=== PATIENT | male | born 1935 | race Caucasian/White ===

== ENCOUNTER 2022-02-15 20:30 | Inpatient (IN) | payer MEDICARE, OTHER, SELFPAY ==
[2022-02-15] VITALS (8 sets, daily range): BP systolic 109–172; BP diastolic 58–88; PULSE 38–59; RESP 14–18; TEMP 36.7–36.8; O2SAT 98–100; BMI 24.6
--- NOTE | 2022-02-15 20:38 | XRR_ITS ---
PROCEDURE INFORMATION: Exam: XR Chest Exam date and time: 02/15/2022 8:44 PM Age: 86 years old Clinical indication: Other: Syncopal episode; Prior surgery; Surgery date: 6+ months; Surgery type: Openheart; Additional info: Syncope TECHNIQUE: Imaging protocol: Radiologic exam of the chest. Views: 1 view. COMPARISON: No relevant prior studies available. FINDINGS: Lungs: There is a left suprahilar/paratracheal density, measuring about 9.2 x 5.3 cm, with probable calcifications. Considerations include mediastinal hilar mass versus vascular mass/aneurysm. Comparison prior study should be obtained if possible. Otherwise follow-up contrast-enhanced chest CT should be obtained. The lung bases are suboptimally assessed due to technique however the upper lungs are clear of focal consolidation. Pleural spaces: Unremarkable. No pleural effusion. No pneumothorax. Heart/Mediastinum: Cardiac silhouette appears somewhat magnified by technique but is probably normal in size. No obvious vascular congestion. Bones/joints: No acute osseous findings. Sternotomy wire Other findings: Single view was submitted. XR/XR chest 1V portable [id number] IMPRESSION: 1. Left hilar/mediastinal density/mass. See discussion above. 2. No obvious acute consolidation. Suboptimal lung base assessment. Followup including lateral view may be obtained if clinically indicated.
--- NOTE | 2022-02-15 20:38 | ECG_ITS ---
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 Measurements Intervals [place] Rate: 53 P: MD: QRS: 55 QRSD: 109 T: 34 QT: 444 QTc: 419 Interpretive Statements SINUS BRADYCARDIA WITH 2ND DEGREE AV BLOCK, 2:1 OR MOBITZ TYPE II WITH OCCASIONAL VENTRICULAR PREMATURE COMPLEXES CRITICAL TEST RESULT INTERPRETATION BASED ON A DEFAULT AGE OF 40 YEARS No previous ECG available for comparison Electronically Signed On 02-17-2022 5:42:12 CDT by Mila Arce M.D. [id number]
--- NOTE | 2022-02-15 20:39 | ED_ITS ---
HPI - Syncope General: Chief Complaint: Syncope Stated Complaint: syncopal episode Time Seen by Provider: 02/15/22 20:38 History of Present Illness: Mr. Owens is an 86-year-old gentleman with remote past medical history of aortic aneurysm and a valve replacement currently on warfarin who presents to the emergency department due to syncope bradycardia. 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 EMS found the patient hypotensive with blood pressures in the 60s and bradycardic with heart rates in the 20s. Initially patient declined transcutaneous pacing and after fluid bolus the patient had improvement in blood pressure and heart rate. He denies similar episodes in the past. He is not on beta-blockade. Intensity of lightheadedness was severe, course has improved. No other specific changes in health, exacerbating, or alleviating factors identified. Onset (ago): minute(s) Prodromal symptoms: lightheaded Witnessed: Yes - by Bystander Review of Systems General: Reports: 10 or more systems reviewed and unremarkable except in HPI and below PFSH ED PFSH: Medical History Abnormal CXR Abnormal chest x-ray dating back to the time he was in the [place]. Has had regular imaging studies in [place] previously with no change documented. Chronic anticoagulation coumadin, for aortic valve replacement, goal INR 2.5-3.5 History of rib fracture Prior event event with seven rib fractures, related to injury from a cow Osteoarthritis Prostatic hypertrophy Surgical History History of aortic aneurysm repair (1987) History of heart valve replacement (1987) aortic Family History Denies family history of CAD (coronary artery disease) Social History Smoking and tobacco status: former smoker Lives independently: Yes Household members: spouse service: Yes branch: [employer] 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 Reads lips to supplement hearing loss Physical Exam Const: COMMON NORMALS: alert GENERAL APPEARANCE: cooperative and well developed HENMT: COMMON NORMALS: normocephalic and atraumatic HEAD & SCALP: normocephalic and atraumatic THROAT: posterior oropharynx normal Eye: COMMON NORMALS: conjunctivae normal CONJUNCTIVA: Yes conjunctivae normal SCLERA: sclerae normal Neck/C-Spine: COMMON NORMALS: supple GENERAL: Yes trachea midline Resp: COMMON NORMALS: normal respiratory effort EFFORT & INSPECTION: Yes able to speak in complete sentences Cardio: RATE: bradycardic RHYTHM: abnormal rhythm irregularly irregular and with ectopic beats GI: COMMON NORMALS: Soft to palpation PALPATION: Yes Soft to palpation and No Tenderness to palpation present (GI) PERCUSSION: normal to percussion Extremity: GENERAL: Yes normal exam except as noted and No edema Neuro: COMMON NORMALS: moves all extremities SENSORIUM/ORIENTATION: Yes alert and No Orientation impaired Psych: COMMON NORMALS: mental status grossly normal and Normal thought process present THOUGHT PROCESS: Normal thought process present Course ED course: - Patient was seen and evaluated by me at bedside - Patient placed on cardiac monitors, IV access obtained - Initial evaluation notable for exam as above - Labs and xrays personally interpreted by me. EKG notable for a somewhat unclear regarding rhythm, possibly variable second-degree block versus slow A. fib. Blood pressure remains adequate and patient asymptomatic resting on cot. - Labs notable for no leukocytosis, normal hemoglobin. INR 3.39. Metabolic panel with mildly elevated creatinine. Delta troponin pending. - Imaging notable for abnormal. Chest x-ray though given patient's reported history of thoracic aortic repair likely normal. CT head and neck negative for acute traumatic injury. - Upon serial reexamination after treatment the patient was similar. Patient assessed with cardiology was consulted. - Based on patient history, evaluation, and testing as interpreted the most likely cause of the patient's condition is symptomatic bradycardia with new onset electrical conduction abnormality. - The results of ED evaluation were discussed with the patient including plan for admission due to requirement for level of care not available if discharged to prevent significant worsening/deterioration. - Admitting service was contacted and Dr Uribe with the hospitalist serviceagreed to admit the patient - Patient was admitted without further deterioration or significant events. Note: Click bubbles or prepopulated solis in note writing are used for assistance with data collection and billing and are inherently more limited than narrative and other text portions of this note. Please use narrative for additional clinical history and defer to narrative/free test for any case of contradictory information. If information appears in only free text or click bubble it should be considered present or absent as reported. Please contact note copywriter for clarifications of clinical information or contradictory information. MDM is a brief summary, contradictory or erroneous seeming information should be clarified and full note should be reviewed. Vital Signs: Vital signs: Vital Signs Temperature 98.8 F 02/22/22 13:30 Pulse Rate 60 02/22/22 13:30 Respiratory Rate 14 02/22/22 13:30 Blood Pressure 108/65 02/22/22 13:30 Pulse Oximetry 95 02/22/22 13:30 MDM - Syncope Medical Decision Making 86-year-old gentleman presenting due to syncope with initial bradycardia and hypotension though improved after fluids given by EMS. Most likely cause is new onset heart block versus slow A. fib. Admitted for further management with cardiology consult. Medical Records I reviewed the patient's medical records. Lab Data I reviewed the patient's lab results. : 02/22/22 03:27 02/20/22 04:52 Radiology Impressions Cervical Spine CT 02/15/22 21:00 IMPRESSION: No acute spine fracture-subluxation. 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 No significant central canal stenosis related to osseous elements. Head CT 02/15/22 21:00 IMPRESSION: No acute intracranial findings. Chest X-Ray 02/21/22 08:02 IMPRESSION: 1. Development of mild interstitial infiltrates in the central and lower right lung since prior study. Developing pneumonia is not excluded. Laboratory Results WBC 8.6 10^3/uL (4.0-10.0) 02/15/22 21:40 RBC 4.64 10^6/uL (4.1-5.3) 02/15/22 21:40 Hgb 13.6 g/dL (11.7-16.6) 02/15/22 21:40 Hct 41.6 % (42.0-52.0) L 02/15/22 21:40 MCV 89.7 fl (80-94) 02/15/22 21:40 MCH 29.3 pg (28.0-34.0) 02/15/22 21:40 MCHC 32.7 g/dL (30.0-36.0) 02/15/22 21:40 RDW 14.6 % (12.1-15.1) 02/15/22 21:40 Plt Count 128 10^3/cmm (130-400) L 02/15/22 21:40 MPV 11.0 fL (7.4-10.4) H 02/15/22 21:40 Neut % (Auto) 82.5 % 02/15/22 21:40 Lymph % (Auto) 11.2 % 02/15/22 21:40 [place] % (Auto) 4.1 % 02/15/22 21:40 Eos % (Auto) 1.6 % 02/15/22 21:40 Baso % (Auto) 0.1 % 02/15/22:40 Neut # (Auto) 7.13 10^3/uL (1.8-7.7) 02/15/22 21:40 Lymph # (Auto) 1.0 10^3/uL (0.8-4.8) 02/15/22 21:40 [place] # (Auto) 0.4 10^3/uL (0.2-0.9) 02/15/22 21:40 Eos # (Auto) 0.1 10^3/uL (0.0-0.8) 02/15/22 21:40 Baso # (Auto) 0.0 10^3/uL (0.0-0.1) 02/15/22 21:40 Nucleated RBC % (auto) 0 % 02/15/22 21:40 Nucleated RBCs # 0.0 /100WBC 02/15/22 21:40 PT 34.50 SECONDS (12.1-14.9) H 02/15/22 21:40 INR 3.39 (0.8-1.2) H 02/15/22 21:40 APTT 43.8 SECONDS (23.9-36.7) H 02/15/22 21:40 Sodium 139 mmol/L (136-145) 02/15/22 21:40 Potassium 4.2 mmol/L (3.5-5.1) 02/15/22 21:40 Chloride 105 mmol/L (98-107) 02/15/22 21:40 Carbon Dioxide 26 mmol/L (22-29) 02/15/22 21:40 Anion Gap 12.2 (5-19) 02/15/22 21:40 BUN 19 mg/dL (8-23) 02/15/22 21:40 Creatinine 1.3 mg/dL (0.7-1.2) H 02/15/22 21:40 GFR Calculation Not Reportable 02/15/22 21:40 Glucose 139 mg/dL (65-115) H 02/15/22 21:40 POC Glucose 134 mg/dL (70-110) H 02/15/22 20:43 Calculated Osmolality 293 mOsm/kg (285-295) 02/15/22 21:40 Calcium 9.5 mg/dL (8.5-10.5) 02/15/22 21:40 Magnesium 2.0 mg/dL (1.7-2.3) 02/15/22 21:40 Total Bilirubin 0.2 mg/dL (0.15-1.2) 02/15/22 21:40 AST 21 U/L (0-40) 02/15/22 21:40 ALT 14 U/L (0-41) 02/15/22 21:40 Alkaline Phosphatase 68 IU/L (40-130) 02/15/22 21:40 Troponin T Baseline 16 ng/L (0-15) H 02/15/22 21:40 NT-Pro-B Natriuret Pep 502 pg/mL (0-450) H 02/15/22 21:40 Total Protein 6.7 g/dL (6.6-8.7) 02/15/22 21:40 Albumin 4.0 g/dL (3.5-5.2) 02/15/22 21:40 Globulin 2.7 g/dL (1.3-4.6) 02/15/22 21:40 TSH 7.62 uIU/mL (0.27-4.20) H 02/15/22 21:40 Free T4 1.01 ng/dL (0.82-1.77) 02/15/22 21:40 Critical Care Time Critical Care Time: Critical Care Time: Yes Total Critical Care Time: 45 Attestation: Due to a high probability of clinically significant, possibly life threatening deterioration, the patient required my highest level of attention and preparedness to intervene emergently and I personally spent this critical care time directly and personally managing the patient. This critical care time included obtaining a history; examining the patient; pulse oximetry; ordering and review of laboratory and imaging studies; arranging urgent treatment with development of a management plan; evaluation of patient's response to treatment; frequent reassessment; and, discussions with other providers as applicable. It was exclusive of separately billable procedures. Primary system involved is cardiovascular Discharge Plan Discharge Patient Disposition: Admitted As Inpatient Admit Provider: Yamile Uribe Clinical Impression: Syncope and collapse, Symptomatic bradycardia Condition: Stable Discharge Diet: Advance as tolerated and Cardiac Discharge Activity: Limit activity as instructed Coding Level of Care Code ED Table Tender Sludge for Chg Fwd Exam Comprehensive
--- NOTE | 2022-02-15 21:00 | CTR_ITS ---
PROCEDURE INFORMATION: Exam: CT Head Without Contrast Exam date and time: 02/15/2022 9:20 PM Age: 86 years old Clinical indication: Syncope and collapse; Patient HX: Witnessed syncopal episode. Bradycardic on monitor. History of stroke. TECHNIQUE: Imaging protocol: Computed tomography of the head without contrast. Radiation optimization: All CT scans at this facility use at least one of these dose optimization techniques: automated exposure control; mA and/or kV adjustment per patient size (includes targeted exams where dose is matched to clinical indication); or iterative reconstruction. COMPARISON: No relevant prior studies available. RADIATION DOSE METRICS: Total DLP (mGy-cm): 879.47 FINDINGS: Brain: Mild hypodense changes are noted in the bilateral periventricular regions, likely related to chronic microvascular ischemic disease. There is mild brain parenchymal atrophy. No acute intracranial hemorrhage, mass effect or midline shift. Cerebral ventricles: No pathologic ventricular dilatation. Paranasal sinuses: Visualized sinuses are unremarkable. No fluid levels. Mastoid air cells: Visualized mastoid air cells are well aerated. Bones/joints: Unremarkable. No acute fracture. Soft tissues: Unremarkable. CT/CT head wo con* [id number] IMPRESSION: No acute intracranial findings.
--- NOTE | 2022-02-15 21:00 | CTR_ITS ---
PROCEDURE INFORMATION: Exam: CT Cervical Spine Without Contrast Exam date and time: 02/15/2022 9:23 PM Age: 86 years old Clinical indication: Other: Syncope; Patient HX: Witnessed syncopal episode. Bradycardic on monitor. History of stroke. TECHNIQUE: Imaging protocol: Computed tomography of the cervical spine without contrast. Radiation optimization: All CT scans at this facility use at least one of these dose optimization techniques: automated exposure control; mA and/or kV adjustment per patient size (includes targeted exams where dose is matched to clinical indication); or iterative reconstruction. COMPARISON: CT head wo con* [id number] 02/15/2022 9:20 PM RADIATION DOSE METRICS: Total DLP (mGy-cm): 632.18 FINDINGS: Bones/joints: Multilevel endplate/uncovertebral osteophytes and facet arthropathy are noted. No acute spine fracture or subluxation. Probable osteopenia. C2-C3: No significant disc protrusion. No severe spinal canal stenosis. No significant neural foraminal narrowing. C3-C4: No significant disc protrusion. No severe spinal canal stenosis. Moderate right neural foraminal narrowing. C4-C5: Moderate disc space loss. No significant disc protrusion. No severe spinal canal stenosis. Severe left neural foraminal narrowing. C5-C6: Severe disc space loss with vacuum degeneration. Disc osteophyte complex resulting in [id number] central canal stenosis. Moderate-severe left and moderate right neural foraminal narrowing. C6-C7: Moderate-severe disc space loss with vacuum degeneration. No significant disc protrusion. No severe spinal canal stenosis. No significant neural foraminal narrowing. C7-T1: No significant disc protrusion. No severe spinal canal stenosis. No significant neural foraminal narrowing. Lungs: Lung apices are normal. Soft tissues: Unremarkable. CT/CT cervical spin wo con* [id number] IMPRESSION: No acute spine fracture-subluxation. 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 No significant central canal stenosis related to osseous elements.
[2022-02-15 21:45] LABS: Glucose Point of Care 134 mg/dL (70-110)
[2022-02-15 21:50] LABS: Basophils % 0.1 %; Eosinophils # 0.1 10^3/uL (0.0-0.8); Eosinophils % 1.6 %; Hematocrit 41.6 % (42.0-52.0); Hemoglobin 13.6 g/dL (11.7-16.6); Lymphocytes % 11.2 %; Mean Corpuscular HGB Conc 32.7 g/dL (30.0-36.0); Mean Corpuscular Hemoglobin 29.3 pg (28.0-34.0); Mean Corpuscular Volume 89.7 fl (80-94); Monocytes # 0.4 10^3/uL (0.2-0.9); Monocytes % 4.1 %; Neutrophils # 7.13 10^3/uL (1.8-7.7); Neutrophils % 82.5 %; Nucleated Red Blood Cells % 0 %; Platelet Count 128 10^3/cmm (130-400); Red Blood Count 4.64 10^6/uL (4.1-5.3); Red Cell Distribution Width 14.6 % (12.1-15.1); White Blood Count 8.6 10^3/uL (4.0-10.0)
[2022-02-15 22:02] LABS: INR 3.39 (0.8-1.2)
[2022-02-15 22:03] LABS: Partial Thromboplastin Time 43.8 SECONDS (23.9-36.7)
[2022-02-15 22:10] LABS: Troponin(5th) Baseline 16 ng/L (0-15)
[2022-02-15 22:16] LABS: Alanine Aminotransferase 14 U/L (0-41); Alkaline Phosphatase 68 IU/L (40-130); Anion Gap 12.2 (5-19); Aspartate Amino Transferase 21 U/L (0-40); Blood Urea Nitrogen 19 mg/dL (8-23); Calcium 9.5 mg/dL (8.5-10.5); Carbon Dioxide 26 mmol/L (22-29); Chloride 105 mmol/L (98-107); Globulin 2.7 g/dL (1.3-4.6); Glucose 139 mg/dL (65-115); Osmolality Calculated 293 mOsm/kg (285-295); Potassium 4.2 mmol/L (3.5-5.1); Sodium 139 mmol/L (136-145); Total Bilirubin 0.2 mg/dL (0.15-1.2); Total Protein 6.7 g/dL (6.6-8.7)
[2022-02-15 22:23] LABS: NT Pro B Type Natriuretic Pept 502 pg/mL (0-450); Thyroid Stimulating Hormone 7.62 uIU/mL (0.27-4.20)
--- NOTE | 2022-02-15 22:38 | ECG_ITS ---
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 Measurements Intervals [place] Rate: 51 P: ND: QRS: 42 QRSD: 96 T: 47 QT: 429 QTc: 399 Interpretive Statements Sinus rhythm with second-degree type I AV block ABNORMAL RHYTHM ECG Compared to ECG 02/15/2022 20:37:30 Sinus bradycardia no longer present Ventricular premature complex(es) no longer present Electronically Signed On 02-17-2022 5:57:32 CDT by Mila Arce M.D. [id number]
[2022-02-15 23:11] LABS: Free T4 Free Thyroxine 1.01 ng/dL (0.82-1.77)
--- NOTE | 2022-02-15 23:55 | P.HP_ITS ---
Providers/Chief Complaint Admitting Physician: Yamile Uribe MD Chief Complaint: syncopal episode History of Present Illness Remington Owens is a 86 year old male who presented to the emergency room via EMS after a syncopal episode after eating dinner. It is his anniversary and he was out to dinner. He had finished eating and was sitting at the table socializing. He himself does not recall exactly what happened though he does remember sitting at the table. He had what was described as severe dizziness and then passed out. He has never had a similar event in the past. 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 He describes what sounds like an aortic aneurysm as the reason he had to have the aortic valve replacement. He is chronically on Coumadin with a currently therapeutic INR. He did not have similar symptoms prior to his valve surgery. 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 When EMS arrived they found patient's pressures 60s systolic and heart rate in the 20s. Patient was unresponsive when they arrived. He came around and declined to be paced via pacer pads. He was given IV fluids in route and by the time he arrived here heart rate was in the 40s and systolic pressure was around 100-110. Initial EKG showed atrial fibrillation with slow ventricular response at a rate of 53 bpm. Patient denies any known history of atrial fibrillation. He does describe skipping beats for many years but marches out the heart rhythm as regular with intermittent skips rather than being an irregularly irregular rhythm. He has never required any specific medical care for the skipped beats. Other than taking Coumadin chronically because of his mechanical valve he really denies much else from a medical history standpoint. He is not o n any medications that might contribute to bradycardia. He had previously been on Flomax but says he stopped taking that sometime ago. Given the event this evening and vital signs upon EMS arrival, patient is being admitted for further evaluation and treatment. History is obtained from him. Review of Systems Const: Denies: fever(s), chills, change in appetite or change in weight Eyes: Denies: change in vision ENMT: Reports: other (reads lips, hard of hearing); Denies: throat pain or nasal congestion Card: Reports: palpitations (Notices that he skips beats many years); Denies: chest pain or edema Resp: Denies: dyspnea, productive cough, non-productive cough or hemoptysis GI: Denies: abdominal pain, nausea, vomiting, diarrhea, constipation, hematochezia or melena : Reports: urinary hesitancy (Sometimes) and difficulty starting urination (Sometimes); Denies: nocturia or hematuria Musc: Reports: joint pain (Various joint pains in hands, upper extremities, lower extremities; not new) and joint swelling (knuckles, not new) Skin/Breast: Denies: rash, pruritus or sores Neuro: Reports: dizziness; Denies: headache(s), weakness in extremities, sensory changes or frequent falls Psych: Denies: anxiety or depression Endo: Denies: tired all the time, cold intolerance or heat intolerance John/Lymph: Reports: other (on chronic anticoagulation) Medications/Allergies Home Medications Medication Instructions Recorded Confirmed Last Taken Type warfarin 5 mg tablet mg 02/16/22 02/16/22 Unknown History Allergies Allergy/AdvReac Type Severity Reaction Status Date / Time celecoxib [From Celebrex] Allergy ADR-Gastrointestinal Verified 02/16/22 00:14 Upset PFSH Acute PFSH: Medical History (Updated 02/16/22 @ 03:55 by Yamile Uribe MD) Abnormal CXR Abnormal chest x-ray dating back to the time he was in the [place]. Has had regular imaging studies in [place] previously with no change documented. Chronic anticoagulation coumadin, for aortic valve replacement, goal INR 2.5-3.5 History of rib fracture Prior event event with seven rib fractures, related to injury from a cow Osteoarthritis Prostatic hypertrophy Surgical History (Updated 02/16/22 @ 04:07 by Yamile Uribe MD) History of aortic aneurysm repair (1987) History of heart valve replacement (1987) aortic Family History (Updated 02/16/22 @ 03:41 by Yamile Uribe MD) Denies family history of CAD (coronary artery disease) Social History (Updated 02/16/22 @ 03:43 by Yamile Uribe MD) Smoking and tobacco status: former smoker Substance/Drug Use: never Lives independently: Yes Household members: spouse service: Yes branch: [facility] 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 Reads lips to supplement hearing loss Vitals/I&O/Wt Last Vital Signs Temp 98.1 F 02/15/22 20:31 Pulse 50 L 02/15/22 23:27 Resp 18 02/15/22 23:27 BP 116/63 02/15/22 23:27 Pulse Ox 98 02/15/22 23:27 Weight last 48 hrs Weight 73.482 kg Physical Exam Narrative: Constitutional: Awake and alert, cooperative, hard of hearing and request mask be removed so that he can read lips HEENT: Normocephalic, pupils are equally reactive bilaterally, extraocular movements intact, moist mucous membranes Neck: Supple Respiratory: Clear to auscultation bilaterally without any rales wheezes or rhonchi noted Cardiovascular: Irregular, bradycardic rhythm with mechanical valve click, no JVD Abdomen: Soft, nontender, positive bowel sounds Extremities: Trace edema, bony hypertrophy noted particularly in the hands right more so than left second and third MCP and first PIP Skin: Dry, no acute sores or large areas of bruising noted Neuro: Speech clear, face symmetric, moves all extremities Psych: Unable to provide some details of history himself as he usually relies on his to fill in the information but is oriented to person, place, time and situation Data : 02/15/22 21:40 02/15/22 21:40 Other Labs: Radiology Impressions Chest X-Ray 02/15/22 20:38 Lungs: There is a left suprahilar/paratracheal density, measuring about 9.2 x 5.3 cm, with probable calcifications. Considerations include mediastinal hilar mass versus vascular mass/aneurysm. Comparison prior study should be obtained if possible. Otherwise follow-up contrast-enhanced chest CT should be obtained. The lung bases are suboptimally assessed due to technique however the upper lungs are clear of focal consolidation. Pleural spaces: Unremarkable. No pleural effusion. No pneumothorax. Heart/Mediastinum: Cardiac silhouette appears somewhat magnified by technique but is probably normal in size. No obvious vascular congestion. Bones/joints: No acute osseous findings. Sternotomy wire IMPRESSION: 1. Left hilar/mediastinal density/mass. See discussion above. 2. No obvious acute consolidation. Suboptimal lung base assessment. Followup including lateral view may be obtained if clinically indicated. Cervical Spine CT 02/15/22 21:00 IMPRESSION: No acute spine fracture-subluxation. 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 No significant central canal stenosis related to osseous elements. Head CT 02/15/22 21:00 IMPRESSION: No acute intracranial findings. Laboratory Results WBC 8.6 10^3/uL (4.0-10.0) 02/15/22 21:40 RBC 4.64 10^6/uL (4.1-5.3) 02/15/22 21:40 Hgb 13.6 g/dL (11.7-16.6) 02/15/22 21:40 Hct 41.6 % (42.0-52.0) L 02/15/22 21:40 MCV 89.7 fl (80-94) 02/15/22 21:40 MCH 29.3 pg (28.0-34.0) 02/15/22 21:40 MCHC 32.7 g/dL (30.0-36.0) 02/15/22 21:40 RDW 14.6 % (12.1-15.1) 02/15/22 21:40 Plt Count 128 10^3/cmm (130-400) L 02/15/22 21:40 MPV 11.0 fL (7.4-10.4) H 02/15/22 21:40 Neut % (Auto) 82.5 % 02/15/22 21:40 Lymph % (Auto) 11.2 % 02/15/22 21:40 [place] % (Auto) 4.1 % 02/15/22 21:40 Eos % (Auto) 1.6 % 02/15/22:40 Baso % (Auto) 0.1 % 02/15/22:40 Neut # (Auto) 7.13 10^3/uL (1.8-7.7) 02/15/22 21:40 Lymph # (Auto) 1.0 10^3/uL (0.8-4.8) 02/15/22:40 [place] # (Auto) 0.4 10^3/uL (0.2-0.9) 02/15/22 21:40 Eos # (Auto) 0.1 10^3/uL (0.0-0.8) 02/15/22 21:40 Baso # (Auto) 0.0 10^3/uL (0.0-0.1) 02/15/22 21:40 Nucleated RBC % (auto) 0 % 02/15/22 21:40 Nucleated RBCs # 0.0 /100WBC 02/15/22 21:40 PT 34.50 SECONDS (12.1-14.9) H 02/15/22 21:40 INR 3.39 (0.8-1.2) H 02/15/22 21:40 APTT 43.8 SECONDS (23.9-36.7) H 02/15/22 21:40 Sodium 139 mmol/L (136-145) 02/15/22 21:40 Potassium 4.2 mmol/L (3.5-5.1) 02/15/22 21:40 Chloride 105 mmol/L (98-107) 02/15/22 21:40 Carbon Dioxide 26 mmol/L (22-29) 02/15/22 21:40 Anion Gap 12.2 (5-19) 02/15/22 21:40 BUN 19 mg/dL (8-23) 02/15/22 21:40 Creatinine 1.3 mg/dL (0.7-1.2) H 02/15/22 21:40 GFR Calculation Not Reportable 02/15/22 21:40 Glucose 139 mg/dL (65-115) H 02/15/22 21:40 POC Glucose 134 mg/dL (70-110) H 02/15/22 20:43 Calculated Osmolality 293 mOsm/kg (285-295) 02/15/22 21:40 Calcium 9.5 mg/dL (8.5-10.5) 02/15/22 21:40 Magnesium 2.0 mg/dL (1.7-2.3) 02/15/22 21:40 Total Bilirubin 0.2 mg/dL (0.15-1.2) 02/15/22 21:40 AST 21 U/L (0-40) 02/15/22 21:40 ALT 14 U/L (0-41) 02/15/22 21:40 Alkaline Phosphatase 68 IU/L (40-130) 02/15/22 21:40 Troponin T Baseline 16 ng/L (0-15) H 02/15/22 21:40 NT-Pro-B Natriuret Pep 502 pg/mL (0-450) H 02/15/22 21:40 Total Protein 6.7 g/dL (6.6-8.7) 02/15/22 21:40 Albumin 4.0 g/dL (3.5-5.2) 02/15/22 21:40 Globulin 2.7 g/dL (1.3-4.6) 02/15/22 21:40 TSH 7.62 uIU/mL (0.27-4.20) H 02/15/22 21:40 Free T4 1.01 ng/dL (0.82-1.77) 02/15/22 21:40 A&P Assessment and plan (1) Syncope and collapse: Dizziness preceded syncope. EMS noted profound hypotension and bradycardia (systolic pressure 60s and pulse 20) in the field. Vasovagal event could present similarly but patient did not display obvious precipitators of vasovagal syncope. Prominence is noted in the left hilar/aortic notch region on chest x- ray, however. New onset of atrial fibrillation with slow ventricular response, other arrhythmia, acute ischemia, valvular abnormality are within differential. Medication effect a consideration but no current home medications classically associated with such. Therapeutic INR decreases potential for embolic event. R eceived IV fluids in the field with improvement in blood pressure. Patient declined pacing in the field as described. Heart rate has remained in the 40s to low 50s since arrival here. Status: Acute (2) Atrial fibrillation with slow ventricular response: Without evident history of such. He describes skipping beats for some time but denies ever having to be on any medication or other specific treatment for an abnormal heart rhythm. Maintaining heart rate 40s to 50s. Status: Acute (3) Elevated TSH: With normal free T4. No known history of hypothyroidism. Clinical significance unclear at this point in time though could be suggestive of hypothyroidism/subcl inical hypothyroidism which might be a contributing factor to above. Status: Acute (4) Abnormal CXR: Significant prominence noted in the aortic notch/left hilar region on chest x- ray. Also with noted calcifications. These are not new. Patient reports a longstanding history of an abnormal chest x-ray dating back to the days he was in [facility]. He has had regular imaging studies in [place], most recent being last year, which have not shown any difference over time. Status: Chronic (5) History of heart valve replacement: Aortic, mechanical valve, secondary to aneurysm Status: Chronic (6) Chronic anticoagulation: Warfarin, therapeutic INR at admission, goal INR 2.5-3.5, aortic valve rep lacement Status: Chronic (7) Prostatic hypertrophy: Had previously been on Flomax and transiently required a Lopez catheter. Denies recent nocturia and reports only occasional slow stream and difficulty initiating stream. Status: Chronic Plan Creatinine of 1.3 without any prior laboratory values for comparison, normal potassium and magnesium Inpatient admission ICU monitoring initially given degree of bradycardia and hypotension noted in the field Continuous cardiac monitoring Pacer pads and atropine if needed for symptomatic bradycardia Cardiology consultation, ED provider discussed with Dr. Arce who will see patient in the morning Records, including any cardiac associated records, have been requested from [facility] where patient reports he usually receives medical care Continue serial cardiac enzymes Echocardiogram Continue IV fluids at a low rate x1 more bag Hold Coumadin presently in event patient has persistent bradycardia necessitating pacer placement Daily INR As INR nears 2.5 we will need to initiate heparin drip for bridging therapy Clarify usual home dose of Coumadin with pharmacy and/or medical records and/or home medication bottle in the morning; reported to nursing staff 5.5 mg this evening but patient reports 1-1/2 tablets daily. Strongly suspect he is taking 7.5 mg daily. Will also need to clarify with who PCP and local area network systems adminstrator are as patient unable to recall Recommend repeat TSH in the outpatient setting in 4 to 6 weeks I have not ordered any further imaging of the chest given patient report of chronically abnormal imaging study along with indication of unchanged images last year taken in [place]. Monitor for prostatic hypertrophy symptoms, has required Lopez catheter and Flomax therapy transiently in the past Supportive care otherwise Anticipate discharge home with outpatient follow-up Allow natural as per patient wishes Attestations Medical Necessity Statement*: Anticipated stay greater than two midnights in a patient with a known history of mechanical aortic valve on chronic Coumadin presenting with syncopal event. He was found to have profound bradycardia and hypotension and what appears to be new onset atrial fibrillation with slow ventricular response. At risk of recurrent potentially life-threatening event. Has not had similar episodes previously. Other issues and current plans are as noted above. Coding Level of Care Code Acute Realtime Captioner for Tammy Waterman Diagnoses Syncope and collapse R55 History of heart valve replacement Z95.2 Chronic anticoagulation Z79.01 Prostatic hypertrophy N40.0 Atrial fibrillation with slow ventricular response I48.91 Elevated TSH R79.89 Abnormal CXR R93.89
[2022-02-16] VITALS (158 sets, daily range): BP systolic 119–169; BP diastolic 55–107; PULSE 40–79; RESP 13–29; TEMP 36.5; O2SAT 90–100
[2022-02-16 01:21] LABS: Troponin 5 2HR 12.92 ng/L (0-15)
[2022-02-16 01:46] LABS: Troponin 5 2HR Delta -3.08 ABS# (0-10)
--- NOTE | 2022-02-16 02:38 | ECG_ITS ---
[facility] Test Date: 2022-02-16 Pat Name: Remington Owens Department: Room: ICU02 Gender: Male Flake Miller Helper: : 1935 Requested By: Donta Oconnell Order Number: [id number] Lotus MD: Mila Arce M.D. Measurements Intervals [place] Rate: 43 P: [place]: QRS: 58 QRSD: 96 T: 43 QT: 434 QTc: 371 Interpretive Statements Sinus bradycardia with second-degree type I AV block ABNORMAL RHYTHM ECG Compared to ECG 02/15/2022 23:34:49 No significant changes Electronically Signed On 02-17-2022 5:59:25 CDT by Mila Arce M.D. [email or web address], md, [email or web address] [id number]
--- NOTE | 2022-02-16 02:43 | USCV_ITS ---
Remington Owens Age: 86 Gender: M : 1935 Exam Date: 02/16/2022 02:57 Ordering Phys: Yamile Uribe MD Technologist: QUIN Exam Location: [facility] [place] Indication: AFib with SVR / Syncope / AVR BP: 128 / 61 HR: 67 Rhythm: Sinus Technical Quality: Adequate MEASUREMENTS (Male / Female) Normal Values 2D ECHO LV Diastolic Diameter PLAX 4.9 cm 4.2 - 5.9 / 3.9 - 5.3 cm LV Systolic Diameter PLAX 3.3 cm IVS Diastolic Thickness 0.9 cm 0.6 - 1.0 / 0.6 - 0.9 cm IVS Systolic Thickness 0.9 cm LVPW Diastolic Thickness 1.2 cm 0.6 - 1.0 / 0.6 - 0.9 cm LVPW Systolic Thickness 1.4 cm LVOT Diameter 1.7 cm LV Ejection Fraction 2D Teich 61.1 % LV Ejection Fraction MOD 2C 47.6 % LV Ejection Fraction 2C AL 51.5 % LA Diameter 3.7 cm LA Width 4.8 cm LA Height 4.8 cm RA Width 5.0 cm RA Height 5.3 cm Aorta at Sinotubular Diameter 1.1 cm IVC Diameter 2.4 cm M-MODE Aortic Annulus Diameter 1.5 cm LA Ao Ratio MM 2.5 MV E Point Septal Separation 1.9 cm DOPPLER AV Peak Velocity 108.0 cm/s MV Peak Velocity 98.0 cm/s MV Area PHT 5.0 cm squared Mitral E to A Ratio 1.3 MV E' Velocity 98.0 cm/s TR Peak Velocity 186.9 cm/s TR Peak Gradient 14.0 mmHg TR Mean Velocity 143.2 cm/s TR Mean Gradient 9.5 mmHg TR Velocity Time Integral 53.0 cm Right Atrial Pressure 10.0 mmHg Pulmonary Artery Systolic Pressu 24.0 mmHg PV Peak Velocity 77.0 cm/s RV Acceleration Time 0.1 s RV Ejection Time 0.4 s RV AcT/ET 0.3 FINDINGS Left Ventricle Normal LV size with borderline low ejection fraction of 51%. Mild hypokinesia of the septum and anteroseptal segments. Right Ventricle Possibly of normal size and ejection fraction Right Atrium Could not be visualized well Left Atrium Mildly increased left atrial size. Mitral Valve Moderately severe eccentric mitral valve regurgitation. Mild prolapse of the anterior mitral leaflet. Aortic Valve The valve leaflets could not visualize well. Possibly prosthetic valve Tricuspid Valve Could not be visualized well Pulmonic Valve Mild pulmonary valve regurgitation. Pericardium No pericardial effusion. Aorta Synthetic aortic root IVC Could not be visualized well CONCLUSIONS Normal LV size with borderline low ejection fraction of 51%. Wall motion normalities as mentioned above. Moderately severe eccentric mitral regurgitation with mild prolapse of the anterior mitral leaflet. Composite graft of the aortic root with prosthetic valve-could not be well visualized Peak velocity of the aortic valve was 1.08 m/s Mild pulmonary valve regurgitation. Mildly increased left atrial size. There is no pericardial effusion. No previous study is available for comparison. Technically somewhat limited study Dr Mila Arce MD FACC (Electronically Signed) Final Date: 16 February 2022 19:19 S
[2022-02-16] MEDS: sodium chlor 0.45% +KCl 20 mEq 20 MEQ/1,000 ML BAG 50 MEQ IV (03:34)
--- NOTE | 2022-02-16 08:19 | USCV_ITS ---
Remington Owens Age: 86 Gender: M : 1935 Exam Date: 02/16/2022 08:49 Ordering Phys: Roger Montoya MD Technologist: Magda Roland [place] [facility] [place]: Syncope Risk Factors: Previous Vascular Surgery: Right Brachial BP: / Left Brachial BP: / Right Left Velocity (cm/s) Spectral Plaque Velocity (cm/s) Spectral Plaque Syst/Diast Broadening Syst/Diast Broadening 54.10/ 8.30 Prox CCA 56.60 / 12.10 62.70/ 10.30 Mid CCA 63.60 / 10.20 63.90/ 17.60 Distal CCA 51.90 / 11.00 45.80/ 10.10 Prox ICA 55.20 / 11.70 59.00/ 16.30 Mid ICA 57.00 / 16.20 56.80/ 15.80 Distal ICA 46.90 / 10.30 71.70 ECA 70.60 0.94 ICA/CCA 0.90 Antegrade Vertebral Antegrade 44.20/ 8.80 cm/s 30.70/ 5.00 cm/s Tri Subclavian Tri 58.00 89.20 FINDINGS Comparison: none available. Diffuse bilateral scattered calcified plaque and intimal thickening throughout the common carotid arteries and extending through the bifurcation. No significant stenosis. Bilateral antegrade vertebral arteries. CONCLUSIONS Bilateral ICA stenosis less than 50%. Diffuse carotid atherosclerotic plaque without stenosis. Dr. Cielo Gunter DO (Electronically Signed) Final Date: 16 February 2022 09:43 S
[2022-02-16 12:02] LABS: INR 3.16 (0.8-1.2)
[2022-02-16 12:10] LABS: Anion Gap 12.3 (5-19); Blood Urea Nitrogen 20 mg/dL (8-23); Calcium 9.6 mg/dL (8.5-10.5); Carbon Dioxide 24 mmol/L (22-29); Chloride 107 mmol/L (98-107); Glucose 129 mg/dL (65-115); Osmolality Calculated 292 mOsm/kg (285-295); Potassium 4.3 mmol/L (3.5-5.1); Sodium 139 mmol/L (136-145)
--- NOTE | 2022-02-16 12:24 | P.PN_ITS ---
Subjective Subjective: Patient was seen this morning, is at bedside, he denies any episodes of passing out in the past, he tells me that he has had an aortic aneurysm repair, aortic valve repair, denies a history of CAD, denies any chest pain, no history of strokes, he tells me that he is not exactly sure how this happened, he is agreeable to have a pacemaker placement if required he tells me, he is change his mind Vitals/I&O/Wt Last Vital Signs Temp 97.7 F 02/16/22 07:30 Pulse 56 L 02/16/22 10:00 Resp 18 02/16/22 10:00 BP 131/83 02/16/22 09:55 Pulse Ox 91 02/16/22 10:00 02/15/22 02/16/22 02/16/22 22:59 06:59 14:59 Intake Total 100 / 100 240 / 240 Balance 100 / 100 240 / 240 Weight last 48 hrs Weight 75.892 kg Weight 73.482 kg Physical Exam Const: COMMON NORMALS: no acute distress and patient oriented x3 Resp: COMMON NORMALS: normal respiratory effort, No retractions, No use of accessory muscles and clear to auscultation bilaterally AUSCULTATION: clear to auscultation bilaterally Cardio: COMMON NORMALS: regular rate, regular rhythm, S1 normal heart sound present and S2 normal heart sound present RATE: regular rate RHYTHM: regular rhythm HEART SOUNDS: S1 normal heart sound present and S2 normal heart sound present GI: COMMON NORMALS: Normal to inspection, nondistended, normoactive bowel sounds present, Soft to palpation and non-tender PALPATION: Yes Soft to palpation Extremity: COMMON NORMALS: no pedal edema Neuro: COMMON NORMALS: patient oriented x3 Psych: COMMON NORMALS: mental status grossly normal Data : 02/15/22 21:40 02/16/22 11:31 A&P Assessment and plan (1) Syncope and collapse: -Will obtain cardiac echocardiogram results, carotid artery ultrasound -Cardiology on consult, decision on pursuing pacemaker placement versus Holter monitoring as outpatient versus stress testing Dizziness preceded syncope. EMS noted profound hypotension and bradycardia (systolic pressure 60s and pulse 20) in the field. Vasovagal event could presen t similarly but patient did not display obvious precipitators of vasovagal syncope. Prominence is noted in the left hilar/aortic notch region on chest x- ray, however. New onset of atrial fibrillation with slow ventricular response, other arrhythmia, acute ischemia, valvular abnormality are within differential. Medication effect a consideration but no current home medications classically associated with such. Therapeutic INR decreases potential for embolic event. Received IV fluids in the field with improvement in blood pressure. Patient declined pacing in the field as described. Heart rate has remained in the 40s to low 50s since arrival here. Status: Acute (2) Atrial fibrillation with slow ventricular response: Without evident history of such. He describes skipping beats for some time but denies ever having to be on any medication or other specific treatment for an abnormal heart rhythm. Maintaining heart rate 40s to 50s. Status: Acute (3) Elevated TSH: With normal free T4. No known history of hypothyroidism. Clinical significance unclear at this point in time though could be suggestive of hypothyroidism/subclinical hypothyroidism which might be a contributing factor to above. Status: Acute (4) Abnormal CXR: Significant prominence noted in the aortic notch/left hilar region on chest x- ray. Also with noted calcifications. These are not new. Patient reports a longstanding history of an abnormal chest x-ray dating back to the days he was in the [place]. He has had regular imaging studies in [place], most recent being last year, which have not shown any difference over time. Status: Chronic (5) History of heart valve replacement: Aortic, mechanical valve, secondary to aneurysm Status: Chronic (6) Chronic anticoagulation: Warfarin, therapeutic INR at admission, goal INR 2.5-3.5, aortic valve replacement Status: Chronic (7) Prostatic hypertrophy: Had previously been on Flomax and transiently required a Lopez catheter. Denies recent nocturia and reports only occasional slow stream and difficulty initiating stream. Status: Chronic Plan Creatinine of 1.3 without any prior laboratory values for comparison, normal potassium and magnesium Inpatient admission ICU monitoring initially given degree of bradycardia and hypotension noted in the field Continuous cardiac monitoring Pacer pads and atropine if needed for symptomatic bradycardia Cardiology consultation, ED provider discussed with Dr. Arce who will see patient in the morning Records, including any cardiac associated records, have been requested from [facility] where patient reports he usually receives medical care Continue serial cardiac enzymes Echocardiogram Continue IV fluids at a low rate x1 more bag Hold Coumadin presently in event patient has persistent bradycardia necessitating pacer placement Daily INR As INR nears 2.5 we will need to initiate heparin drip for bridging therapy Clarify usual home dose of Coumadin with pharmacy and/or medical records and/or home medication bottle in the morning; reported to nursing staff 5.5 mg this evening but patient reports 1-1/2 tablets daily. Strongly suspect he is taking 7.5 mg daily. Will also need to clarify with who PCP and induction heat treater are as patient unable to recall Recommend repeat TSH in the outpatient setting in 4 to 6 weeks I have not ordered any further imaging of the chest given patient report of chronically abnormal imaging study along with indication of unchanged images last year taken in [place]. Monitor for prostatic hypertrophy symptoms, has required Lopez catheter and Flomax therapy transiently in the past Supportive care otherwise Anticipate discharge home with outpatient follow-up Allow natural as per patient wishes Attestations Medical Necessity Statement*: Patient requires hospitalization for syncope and collapse Coding Level of Care Code Acute Fretted String Instrument Repairer for Marving Fwd Diagnoses Syncope and collapse R55 Atrial fibrillation with slow ventricular response I48.91 Elevated TSH R79.89 Abnormal CXR R93.89 History of heart valve replacement Z95.2 Chronic anticoagulation Z79.01 Prostatic hypertrophy N40.0
[2022-02-16 12:29] LABS: Troponin 5 6HR 13.57 ng/L (0-15)
[2022-02-16 12:46] LABS: Troponin 5 6HR Delta -2.43 ng/L (0-12)
--- NOTE | 2022-02-16 19:20 | P.CONIM_ITS ---
Providers/Reason For Consult Consulting Physician/Specialty*: MIRTA Arce MD/cardiology Reason for Consult*: Patient with a syncope/bradycardia Requesting Physician: Dr. Montoya Attending Physician: Roger Montoya MD History of Present Illness History of Present Illness Remington Owens is a 86 year old male, is admitted to the hospital through the emergency room where he presented with an episode of syncope. This patient apparently has been in his baseline state of health up until the last evening when he had an episode of syncope at a restaurant. The patient apparently was having his 60th anniversary dinner. After finishing the dinner, he was sitting around socializing. All of a sudden, he got dizzy and then collapsed to the floor. Patient does not recall the events after the dizziness. As EMS arrived at the scene, he was found to have blood pressure in the 60s with a heart rate in the 20s. Apparently the patient refused transcutaneous patch. With the IV fluids, his heart rate went up into the 40s. By the time he came to the emergency room, his blood pressure was in the normal range. Heart rate was in the 40s and 50s. His EKG showed second-degree type I AV block, intermittent A-V dissociation, junctional escape beats and PVCs. He has not had any recurrence of syncopal episodes, since the hospital admission. Apparently this patient has not been taking any AV elver blocking agents at home. He has been taking only warfarin. He denies any chest pain or chest tightness. No fever or chills. No cough. This patient has been very active. 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 Patient had a stroke 10 years ago. Since then, he has been having problems with memory. He is being followed by a applications programmer analyst at the [facility] in [place]. Patient had a CT of the head and cervical spine in the emergency room. No acute pathology were noted. Medications/Allergies Home Medications Medication Instructions Recorded Confirmed Last Taken Type aspirin 81 mg chewable tablet 81 mg PO DAILY 02/16/22 02/16/22 02/15/22 History multivitamin 1 tab PO DAILY 02/16/22 02/16/22 02/15/22 History simvastatin 20 mg tablet 20 mg PO DAILY 02/16/22 02/16/22 02/15/22 History tamsulosin 0.4 mg capsule 0.4 mg PO DAILY 02/16/22 02/16/22 02/15/22 History vitamin A-vitamin C-vit E-min 1 tab PO DAILY 02/16/22 02/16/22 02/15/22 History tablet warfarin 5 mg tablet 7.5 mg PO DAILY 02/16/22 02/16/22 Unknown History Allergies Allergy/AdvReac Type Severity Reaction Status Date / Time celecoxib [From Celebrex] Allergy ADR-Gastrointestinal Verified 02/16/22 00:14 Upset PFSH Acute PFSH: Medical History Abnormal CXR Abnormal chest x-ray dating back to the time he was in the [place]. Has had regular imaging studies in [place] previously with no change documented. 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 Not in any acute distress. HEENT: No significant pallor, icterus or lymphadenopathy. The pupils are symmetrical. Oral cavity: There are no mucous membrane lesions. Funduscopic examination: The fundus is not visualized NECK: Trachea appears to be central. No masses noted. No JVD or thyromegaly appreciated. No carotid bruit. RESPIRATORY: Chest is symmetrical. No intercostals muscle retraction or any accessory muscle activation. There is no chest wall tenderness. Breath sounds are heard bilaterally. No rales or rhonchi heard. No evidence of any conso lidation. BREASTS: Deferred. HEART: The first heart sound is variable. Second heart sound is normal. Systolic murmur grade 3 or 6 in the mitral area and in the left sternal border. No diastolic murmurs. ABDOMEN: No vessel pulsations or distention. No tenderness. No organomegaly appreciated. No abdominal bruit. Bowel sounds are normally heard. : Deferred. RECTAL: Deferred. LYMPHATIC: No lymphadenopathy noted in the neck or groin. EXTREMITIES: No edema or cyanosis. No clubbing. Peripheral pulses are palpable but somewhat weak bilaterally in the lower extremities. MUSCULOSKELETAL: No acute joint deformities or swelling SKIN: There are no significant scars or skin rash noted. NEUROPSYCHIATRIC: The patient is alert and oriented x3. Appears to be in a good mood. The higher functions are grossly within normal limits. No tremors or rigidity noted. Data : 02/15/22 21:40 02/16/22 11:31 Echo: My impression: Echocardiogram from 02/16/2022 ?normal LV size with borderline low ejection fraction of 51%. ?Wall motion normalities as mentioned above. ?Moderately severe eccentric mitral regurgitation with mild ?prolapse of the anterior mitral leaflet. ?Composite graft of the aortic root with prosthetic valve-could ?not be well visualized ?Peak velocity of the aortic valve was 1.08 m/s ?Mild pulmonary valve regurgitation. ?Mildly increased left atrial size. ?There is no pericardial effusion. ?No previous study is available for comparison. ?Technically somewhat limited study EKG 1: My Interpretation: Sinus rhythm with A-V dissociation, junctional escape rhythm and sinus pauses EKG computer-generated impression: Chest X-Ray 02/15/22 20:38 IMPRESSION: 1. Left hilar/mediastinal density/mass. See discussion above. 2. No obvious acute consolidation. Suboptimal lung base assessment. Followup including lateral view may be obtained if clinically indicated. Cervical Spine CT 02/15/22 21:00 IMPRESSION: No acute spine fracture-subluxation. 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 No significant central canal stenosis related to osseous elements. Head CT 02/15/22 21:00 IMPRESSION: No acute intracranial findings. A&P Assessment and plan (1) Syncope and collapse: Most likely the patient's syncope was related to extreme bradycardia possibly from sinus elver dysfunction. He seems to have intermittent second-degree type I AV block/junctional escape beats. Status: Acute (2) Symptomatic bradycardia: Patient seems to have intermittent high degree AV block, sinus pauses/features of sinus elver dysfunction. Status: Acute (3) S/P ascending aortic aneurysm repair: Patient patient have a composite graft at the aortic root at the prosthetic valve. He is on long-term oral anticoagulation. 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 Status: Acute (5) History of cardiac arrhythmia: He has a history of cardiac arrhythmia but never been told about atrial f ibrillation. Current EKG in the hospital does not show any evidence of atrial fibrillation. Status: Acute Plan Patient apparently had episodes of bradycardia and sinus pauses of more than 3 seconds on the telemetry, since hospital admission. There is no reversible causes for the bradyarrhythmia. In view of his clinical presentation and objective findings, for further management of his condition, he requires a permanent pacemaker plantation. He may be closely monitored on telemetry at this point. Because of the elevated INR, we may need to wait till the level becomes acceptable for the procedure. This was discussed with the patient and his in detail which he understood well. Thank you for the opportunity to evaluate this patient and make these recommendations. Consult Attestations Medical Necessity Statement: Patient requires continued hospital stay for close monitoring and further management Coding Level of Care Code Acute Peoplesoft Crm Developer for Marving Fwd History Detailed Exam Detailed Medical Decision Making High Complexity Diagnoses Syncope and collapse R55 Symptomatic bradycardia R00.1 S/P ascending aortic aneurysm repair Z98.890; Z86.79 History of CVA (cerebrovascular accident) Z86.73 History of cardiac arrhythmia Z86.79
[2022-02-17] VITALS (45 sets, daily range): BP systolic 103–171; BP diastolic 54–99; PULSE 42–79; RESP 14–26; TEMP 36.5; O2SAT 92–100
[2022-02-17 06:10] LABS: INR 3.08 (0.8-1.2)
[2022-02-17] MEDS: aspirin 81 mg Chew Tablet PO (09:11)
[2022-02-17] MEDS: atorvastatin 40 mg Tablet 20 MG PO (09:11)
--- NOTE | 2022-02-17 14:48 | P.PN_ITS ---
Subjective Subjective: Patient was seen this morning, he had a 2-second pause this morning, currently sinus bradycardia, does have evidence of second-degree type I AV block -He tells me that at times he does not feel well when his heart rates are low, feels lightheaded, has not passed out in the hospital -I discussed patient's need for pacemaker placement, however we do not have cardiology services to place pacemaker over the weekend -Discussed options available to him, he can discharge home with a follow-up with cardiology on Sunday for pacemaker placement versus staying as inpatient for pacemaker placement on Sunday versus transfer to [facility] -He does not want to go home, as he passed out when he was at dinner, and it took him over an hour to awaken -He wanted to be transferred to [facility], I called [facility] multiple times, the hospital is full, no beds available, discussed transfer to higher level center at tertiary care facility or a local facility however he declines -Patient wants to stay here in the hospital, and await pacemaker placement on Sunday with cardiology services to place pacemaker is available Vitals/I&O/Wt Last Vital Signs Temp 97.7 F 02/17/22 08:00 Pulse 55 L 02/17/22 14:00 Resp 19 H 02/17/22 14:00 BP 125/60 02/17/22 14:00 Pulse Ox 97 02/17/22 14:00 02/16/22 02/17/22 02/17/22 22:59 06:59 14:59 Intake Total 535 / 1607.5 618 / 618 Output Total 1030 / 1030 700 / 1730 Balance -495 / 577.5 -700 / -122.5 618 / 618 Weight last 48 hrs Weight 74.48 kg Weight 75.892 kg Weight 73.482 kg Physical Exam Const: COMMON NORMALS: no acute distress and patient oriented x3 Neck/C-Spine: COMMON NORMALS: no JVD Resp: COMMON NORMALS: normal respiratory effort, No retractions, No use of accessory muscles and clear to auscultation bilaterally AUSCULTATION: clear to auscultation bilaterally Cardio: COMMON NORMALS: no JVD, regular rhythm, S1 normal heart sound present and S2 normal heart sound present RATE: bradycardic RHYTHM: regular rhythm HEART SOUNDS: S1 normal heart sound present and S2 normal heart sound present GI: COMMON NORMALS: Normal to inspection, nondistended, normoactive bowel sounds present, Soft to palpation and non-tender PALPATION: Yes Soft to palpation Extremity: COMMON NORMALS: no pedal edema Neuro: COMMON NORMALS: patient oriented x3 Data : 02/15/22 21:40 02/16/22 11:31 A&P Assessment and plan (1) Syncope and collapse: -Will obtain cardiac echocardiogram results, carotid artery ultrasound -Cardiology on consult, decision on pursuing pacemaker placement versus Holter monitoring as outpatient versus stress testing Dizziness preceded syncope. EMS noted profound hypotension and bradycardia (systolic pressure 60s and pulse 20) in the field. Vasovagal event could present similarly but patient did not display obvious precipitators of vasovagal syncope. Prominence is noted in the left hilar/aortic notch region on chest x- ray, however. New onset of atrial fibrillation with slow ventricular response, other arrhythmia, acute ischemia, valvular abnormality are within differential. Medication effect a consideration but no current home medications classically associated with such. Therapeutic INR decreases potential for embolic event. Received IV fluids in the field with improvement in blood pressure. Patient declined pacing in the field as described. Heart rate has remained in the 40s to low 50s since arrival here. Status: Acute (2) Atrial fibrillation with slow ventricular response: Without evident history of such. He describes skipping beats for some time but denies ever having to be on any medication or other specific treatment for an abnormal heart rhythm. Maintaining heart rate 40s to 50s. Status: Acute (3) Elevated TSH: With normal free T4. No known history of hypothyroidism. Clinical significance unclear at this point in time though could be suggestive of hypothyroidism/subclinical hypothyroidism which might be a contributing factor to above. Status: Acute (4) Abnormal CXR: Significant prominence noted in the aortic notch/left hilar region on chest x- ray. Also with noted calcifications. These are not new. Patient reports a longstanding history of an abnormal chest x-ray dating back to the days he was in the [place]. He has had regular imaging studies in [place], most recent being last year, which have not shown any difference over time. Status: Chronic (5) History of heart valve replacement: Aortic, mechanical valve, secondary to aneurysm Status: Chronic (6) Chronic anticoagulation: Warfarin, therapeutic INR at admission, goal INR 2.5-3.5, aortic valve replacement Status: Chronic (7) Prostatic hypertrophy: Had previously been on Flomax and transiently required a Lopez catheter. Denies recent nocturia and reports only occasional slow stream and difficulty initiating stream. Status: Chronic Plan Syncope and collapse Normal LV size with borderline low ejection fraction of 51%. ?Wall motion normalities as mentioned above. ?Moderately severe eccentric mitral regurgitation with mild ?prolapse of the anterior mitral leaflet. ?Composite graft of the aortic root with prosthetic valve-could ?not be well visualized ?Peak velocity of the aortic valve was 1.08 m/s ?Mild pulmonary valve regurgitation. ?Mildly increased left atrial size. ?There is no pericardial effusion. ?No previous study is available for comparison. ?Technically somewhat limited study -Secondary to sinus bradycardia, A. fib with slow ventricular response, secondary to AV block, sinus pause -All indicators of this sick sinus syndrome -Will likely require pacemaker placement as he continues to have sinus pauses and symptoms -He does not want to go home, due to his syncopal episodes, he wants to stay as inpatient -However we do not have cardiology services over the weekend he wants to stay in the hospital until Sunday for pacemaker placement -Plan is to keep him as inpatient, and await pacemaker placement on Sunday -Atropine as needed for sinus bradycardia -Currently no need for urgent pacing -Continue to monitor -INR is 3, once it follows below 2.5 we will start heparin drip for bridging -Cardiology on consult -DNR/DNI Attestations Medical Necessity Statement*: Patient requires hospitalization for pacemaker placement, syncope, collapse, Coding Level of Care Code Acute Plastic Sheets Supervisor for ryan Waterman Diagnoses Syncope and collapse R55 Atrial fibrillation with slow ventricular response I48.91 Elevated TSH R79.89 Abnormal CXR R93.89 History of heart valve replacement Z95.2 Chronic anticoagulation Z79.01 Prostatic hypertrophy N40.0
--- NOTE | 2022-02-17 16:49 | PM.PN ---
Subjective Subjective: Telemetry showed ~3 second pause with lightheadedness yesterday at 6:21 pm. No bed at [facility] Medications: Reviewed: Yes Vitals/I&O/Wt Last Vital Signs Temp 97.7 F 02/17/22 08:00 Pulse 45 L 02/17/22 16:00 Resp 20 H 02/17/22 16:00 BP 103/71 02/17/22 16:00 Pulse Ox 94 02/17/22 16:00 02/17/22 02/17/22 02/17/22 06:59 14:59 22:59 Intake Total 618 / 618 Output Total 700 / 1730 Balance -700 / -122.5 618 / 618 Weight last 48 hrs Weight 164 lb 3.2 oz Weight 167 lb 5 oz Weight 162 lb Physical Exam Const: COMMON NORMALS: no acute distress, patient oriented x3 and alert GENERAL APPEARANCE: cooperative, comfortable, well kempt and well hydrated HENMT: COMMON NORMALS: hearing grossly normal bilaterally and external ears normal FACE & SINUS: normal facial exam EXTERNAL EAR: Yes external ears normal Eye: COMMON NORMALS: EOMs intact bilaterally and no scleral icterus GENERAL EYE: appearance normal, both eyes and all related structures Neck/C-Spine: COMMON NORMALS: supple and no JVD GENERAL: Yes normal visual inspection and Yes trachea midline CAROTIDS: Yes normal carotid upstroke Lymph: LYMPHATIC: no lymphadenopathy noted Chest: COMMONS NORMALS: normal inspection of the chest and normal palpation of entire chest wall CHEST: Yes Symmetrical chest wall rise and No tenderness Resp: COMMON NORMALS: clear to auscultation bilaterally EFFORT & INSPECTION: Yes able to speak in complete sentences and No respiratory distress AUSCULTATION: clear to auscultation bilaterally, no crackles, no rales, no rhonchi and no wheezes Cardio: COMMON NORMALS: no JVD, regular rate, regular rhythm, S1 normal heart sound present, S2 normal heart sound present and Peripheral pulses 2+ throughout PALPATION: normal PMI RATE: regular rate RHYTHM: regular rhythm HEART SOUNDS: S1 normal heart sound present, S2 normal heart sound present, no click, no gallops and no murmurs BRUITS: no carotid bruits PERIPHERAL PULSES: Peripheral pulses 2+ throughout, radial pulses present, posterior tibial pulses present and dorsalis pedis present GI: COMMON NORMALS: Soft to palpation AUSCULTATION: Yes normoactive bowel sounds PALPATION: Yes Soft to palpation, No Tenderness to palpation present (GI), No Guarding due to palpation present (GI) and No Rigid due to palpation Extremity: GENERAL: No cyanosis, Yes edema and No pallor Neuro: COMMON NORMALS: patient oriented x3, CN's II-XII intact bilaterally and no focal motor deficits SENSORIUM/ORIENTATION: Yes alert Psych: COMMON NORMALS: Normal thought process present and speech normal APPEARANCE: Yes well kempt SPEECH: Yes normal speech MOOD & AFFECT: Yes euthymic mood THOUGHT PROCESS: Normal thought process present THOUGHT CONTENT: Yes Normal thought content present Data : 02/15/22 21:40 02/16/22 11:31 A&P Assessment and plan (1) Syncope and collapse: Most likely the patient's syncope was related to extreme bradycardia possibly from sinus elver dysfunction. He seems to have intermittent second-degree type I AV block/2:1 AV block and junctional escape beats. -No bed at [facility] -will f/u on records from [facility] -He would like to proceed with PPM placement with Dr. Arce on Sunday. -continue to hold warfarin -will need to be bridged once INR <2 . Status: Acute (2) Symptomatic bradycardia: Patient seems to have intermittent high degree AV block, sinus pauses/features of sinus elver dysfunction. Status: Acute (3) S/P ascending aortic aneurysm repair: Patient patient have a composite graft at the aortic root at the prosthetic valve. He is on long-term oral anticoagulation. 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 Status: Acute (5) History of cardiac arrhythmia: He has a history of cardiac arrhythmia but never been told about atrial fibrillation. Current EKG in the hospital does not show any evidence of atrial fibrillation. Status: Acute Plan Patient apparently had episodes of bradycardia and sinus pauses of more than 3 seconds on the telemetry, since hospital admission. There is no reversible causes for the bradyarrhythmia. In view of his clinical presentation and objective findings, for further management of his condition, he requires a permanent pacemaker plantation. He may be closely monitored on telemetry at this point. Because of the elevated INR, we may need to wait till the level becomes acceptable for the procedure. This was discussed with the patient and his in detail which he understood well. Thank you for the opportunity to evaluate this patient and make these recommendations. Attestations Medical Necessity Statement*: needs hospital stay for symptomatic bradycardia and sinus node dysfunction Coding Level of Care Code Acute Professor Of Theatre for g Fwd Diagnoses Syncope and collapse R55 Symptomatic bradycardia R00.1 S/P ascending aortic aneurysm repair Z98.890; Z86.79 History of CVA (cerebrovascular accident) Z86.73 History of cardiac arrhythmia Z86.79
[2022-02-18] VITALS (23 sets, daily range): BP systolic 119–174; BP diastolic 59–100; PULSE 41–80; RESP 14–26; O2SAT 96–100
[2022-02-18 05:36] LABS: Basophils % 0.4 %; Eosinophils # 0.3 10^3/uL (0.0-0.8); Eosinophils % 5.4 %; Hematocrit 40.5 % (42.0-52.0); Hemoglobin 13.5 g/dL (11.7-16.6); Lymphocytes # 1.8 10^3/uL (0.8-4.8); Lymphocytes % 31.3 %; Mean Corpuscular HGB Conc 33.3 g/dL (30.0-36.0); Mean Corpuscular Hemoglobin 29.3 pg (28.0-34.0); Mean Platelet Volume 11.9 fL (7.4-10.4); Monocytes # 0.5 10^3/uL (0.2-0.9); Monocytes % 8.2 %; Neutrophils # 3.05 10^3/uL (1.8-7.7); Neutrophils % 54.5 %; Nucleated Red Blood Cells % 0 %; Platelet Count 142 10^3/cmm (130-400); Red Cell Distribution Width 14.6 % (12.1-15.1); White Blood Count 5.6 10^3/uL (4.0-10.0)
[2022-02-18 05:48] LABS: INR 1.98 (0.8-1.2)
[2022-02-18 06:02] LABS: Alanine Aminotransferase 13 U/L (0-41); Albumin Level 3.7 g/dL (3.5-5.2); Alkaline Phosphatase 60 IU/L (40-130); Anion Gap 12.4 (5-19); Aspartate Amino Transferase 15 U/L (0-40); Blood Urea Nitrogen 17 mg/dL (8-23); Calcium 9.8 mg/dL (8.5-10.5); Carbon Dioxide 26 mmol/L (22-29); Chloride 104 mmol/L (98-107); Globulin 2.9 g/dL (1.3-4.6); Glucose 95 mg/dL (65-115); Magnesium 2.1 mg/dL (1.7-2.3); Osmolality Calculated 287 mOsm/kg (285-295); Potassium 4.4 mmol/L (3.5-5.1); Sodium 138 mmol/L (136-145); Total Bilirubin 0.5 mg/dL (0.15-1.2); Total Protein 6.6 g/dL (6.6-8.7)
[2022-02-18] MEDS: enoxaparin 80 mg/0.8 mL Syringe SUBCUT ×2 (08:28→19:55)
[2022-02-18] MEDS: aspirin 81 mg Chew Tablet PO (08:28)
[2022-02-18] MEDS: atorvastatin 40 mg Tablet 20 MG PO (08:28)
--- NOTE | 2022-02-18 09:45 | PM.PN ---
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 After cardioversion patient had converted to sinus rhythm with Mobitz type I second-degree AV block and seems like he did wear a monitor for 2 weeks. I do not have the results available of that. Patient follows up with Dr. Moody at [facility]. Transesophageal echocardiogram 14 August 2019: Normal left atrial size and systolic function with left ventricular ejection fraction estimated at 50 to 55%. Normal right ventricle size and systolic function. Moderately dilated left atrium. Mildly dilated right atrium. Mechanical prosthetic aortic valve with peak velocity of 2 m/s with a calculated peak gradient of 16 mmHg and mean gradient of 7 mmHg. Moderate to severe mitral valve regurgitation with a wall impinging jet. Mild tricuspid valve regurgitation and moderate pulmonary hypertension. Last 24 hours: patient has had continued to be in sinus rhythm with first-degree AV block with Mobitz type I AV block intermittent 2 is to 1 AV block and junctional escape beats. Frequent PVCs noted as well. Patient has been asymptomatic. Medications: Reviewed: Yes Vitals/I&O/Wt Last Vital Signs Temp 97.7 F 02/17/22 08:00 Pulse 58 L 02/18/22 07:36 Resp 19 H 02/18/22 07:36 BP 149/78 02/18/22 07:36 Pulse Ox 97 02/18/22 07:36 02/17/22 02/18/22 02/18/22 22:59 06:59 14:59 Intake Total 250 / 868 275 / 275 Output Total 450 / 450 750 / 1200 Balance -200 / 418 -750 / -332 275 / 275 Weight last 48 hrs Weight 166 lb 3.2 oz Weight 164 lb 3.2 oz Physical Exam Const: COMMON NORMALS: no acute distress, patient oriented x3 and alert GENERAL APPEARANCE: cooperative, comfortable, well kempt and well hydrated HENMT: COMMON NORMALS: hearing grossly normal bilaterally and external ears normal FACE & SINUS: normal facial exam EXTERNAL EAR: Yes external ears normal Eye: COMMON NORMALS: EOMs intact bilaterally and no scleral icterus GENERAL EYE: appearance normal, both eyes and all related structures Neck/C-Spine: COMMON NORMALS: supple and no JVD GENERAL: Yes normal visual inspection CAROTIDS: Yes normal carotid upstroke Chest: COMMONS NORMALS: normal inspection of the chest and normal palpation of entire chest wall CHEST: Yes Symmetrical chest wall rise and No tenderness Resp: COMMON NORMALS: clear to auscultation bilaterally EFFORT & INSPECTION: Yes able to speak in complete sentences and No respiratory distress AUSCULTATION: clear to auscultation bilaterally, no crackles, no rales, no rhonchi and no wheezes Cardio: COMMON NORMALS: no JVD, S1 normal heart sound present, S2 normal heart sound present and Peripheral pulses 2+ throughout PALPATION: normal PMI RHYTHM: abnormal rhythm other (irregular) HEART SOUNDS: S1 normal heart sound present, S2 normal heart sound present, no click, no gallops and no murmurs BRUITS: no carotid bruits PERIPHERAL PULSES: Peripheral pulses 2+ throughout, radial pulses present, posterior tibial pulses present and dorsalis pedis present GI: COMMON NORMALS: Soft to palpation AUSCULTATION: Yes normoactive bowel sounds PALPATION: Yes Soft to palpation, No Tenderness to palpation present (GI), No Guarding due to palpation present (GI) and No Rigid due to palpation Extremity: GENERAL: No cyanosis, Yes edema and No pallor Neuro: COMMON NORMALS: patient oriented x3 and no focal motor deficits SENSORIUM/ORIENTATION: Yes alert Psych: COMMON NORMALS: Normal thought process present and speech normal APPEARANCE: Yes well kempt SPEECH: Yes normal speech MOOD & AFFECT: Yes euthymic mood THOUGHT PROCESS: Normal thought process present THOUGHT CONTENT: Yes Normal thought content present Data : 02/18/22 05:05 02/18/22 05:05 Other data: Transthoracic echocardiogram 16 February 2022 CONCLUSIONS ?Normal LV size with borderline low ejection fraction of 51%. ?Mild hypokinesia of the septum and anteroseptal segments. ?Moderately severe eccentric mitral regurgitation with mild ?prolapse of the anterior mitral leaflet. ?Composite graft of the aortic root with prosthetic valve-could ?not be well visualized ?Peak velocity of the aortic valve was 1.08 m/s ?Mild pulmonary valve regurgitation. ?Mildly increased left atrial size. ?There is no pericardial effusion. ?No previous study is available for comparison. ?Technically somewhat limited study A&P Assessment and plan (1) Syncope and collapse: Most likely the patient's syncope was related to bradycardia possibly from sinus elver dysfunction. He seems to have intermittent second-degree type I AV block/2:1 AV block and junctional escape beats. -No bed at [facility] -He would like to proceed with PPM placement with Dr. Arce on Sunday. -continue to hold warfarin -will need to be bridged once INR <2.5 . Status: Acute (2) Symptomatic bradycardia: Patient seems to have intermittent high degree AV block, sinus pauses/features of sinus elver dysfunction. -No reversible cause of bradycardia Status: Acute (3) S/P ascending aortic aneurysm repair: Patient patient have a composite graft at the aortic root at the prosthetic valve. He is on long-term oral anticoagulation. 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 Status: Acute (5) History of cardiac arrhythmia: Patient has history of atrial flutter requiring DEEDEE cardioversion in 2019 Status: Acute Plan Patient had one episode of bradycardia and sinus pauses of more than 3 seconds on the telemetry, since hospital admission. There is no reversible causes for the bradyarrhythmia. In view of his clinical presentation and objective findings, for further management of his condition, he requires a permanent pacemaker plantation. He may be closely monitored on telemetry at this point. Thank you for the opportunity to evaluate this patient and make these recommendations. Attestations Medical Necessity Statement*: Needs hospital stay for PPM placement Coding Level of Care Code Acute Metal Casting Trades Worker for Marvinryan Fwd Exam Comprehensive Diagnoses Syncope and collapse R55 Symptomatic bradycardia R00.1 S/P ascending aortic aneurysm repair Z98.890; Z86.79 History of CVA (cerebrovascular accident) Z86.73 History of cardiac arrhythmia Z86.79
--- NOTE | 2022-02-18 10:24 | PC.SOCIAL ---
Pg 2 IMM Explained to pt Pg 2 IMM. No questions voiced. Provided pt a copy. Initialed, dated, & timed a copy & placed in chart.
--- NOTE | 2022-02-18 14:30 | P.PN_ITS ---
Subjective Subjective: Patient was seen this morning, continued to have sinus pauses throughout the afternoon yesterday, felt lightheaded during episodes Vitals/I&O/Wt Last Vital Signs Temp 97.7 F 02/17/22 08:00 Pulse 56 L 02/18/22 14:00 Resp 25 H 02/18/22 14:00 BP 122/78 02/18/22 14:00 Pulse Ox 100 02/18/22 14:00 02/17/22 02/18/22 02/18/22 22:59 06:59 14:59 Intake Total 250 / 868 525 / 525 Output Total 450 / 450 750 / 1200 Balance -200 / 418 -750 / -332 525 / 525 Weight last 48 hrs Weight 75.387 kg Weight 74.48 kg Physical Exam Const: COMMON NORMALS: no acute distress and patient oriented x3 Resp: COMMON NORMALS: normal respiratory effort, No retractions, No use of accessory muscles and clear to auscultation bilaterally AUSCULTATION: clear to auscultation bilaterally Cardio: COMMON NORMALS: regular rate, regular rhythm, S1 normal heart sound present and S2 normal heart sound present RATE: regular rate RHYTHM: regular rhythm HEART SOUNDS: S1 normal heart sound present and S2 normal heart sound present GI: COMMON NORMALS: Normal to inspection, nondistended, normoactive bowel sounds present, Soft to palpation, non-tender and No hepatosplenomegaly present PALPATION: Yes Soft to palpation and Yes No hepatosplenomegaly present Extremity: COMMON NORMALS: no pedal edema Neuro: COMMON NORMALS: patient oriented x3 Data : 02/18/22 05:05 02/18/22 05:05 A&P Assessment and plan (1) Syncope and collapse: -Will obtain cardiac echocardiogram results, carotid artery ultrasound -Cardiology on consult, decision on pursuing pacemaker placement versus Holter monitoring as outpatient versus stress testing Dizziness preceded syncope. EMS noted profound hypotension and bradycardia (systolic pressure 60s and pulse 20) in the field. Vasovagal event could present similarly but patient did not display obvious precipitators of vasovagal syncope. Prominence is noted in the left hilar/aortic notch region on chest x-ray, however. New onset of atrial fibrillation with slow ventricular response, other arrhythmia, acute ischemia, valvular abnormality are within differential. Medication effect a consideration but no current home medications classically associated with such. Therapeutic INR decreases potential for embolic event. Received IV fluids in the field with improvement in blood pressure. Patient declined pacing in the field as described. Heart rate has remained in the 40s to low 50s since arrival here. Status: Acute (2) Atrial fibrillation with slow ventricular response: Without evident history of such. He describes skipping beats for some time but denies ever having to be on any medication or other specific treatment for an ab normal heart rhythm. Maintaining heart rate 40s to 50s. Status: Acute (3) Elevated TSH: With normal free T4. No known history of hypothyroidism. Clinical significance unclear at this point in time though could be suggestive of hyp othyroidism/subclinical hypothyroidism which might be a contributing factor to above. Status: Acute (4) Abnormal CXR: Significant prominence noted in the aortic notch/left hilar region on chest x- ray. Also with noted calcifications. These are not new. Patient reports a longstanding history of an abnormal chest x-ray dating back to the days he was in the [employer]. He has had regular imaging studies in [place], most recent being last year, which have not shown any difference over time. Status: Chronic (5) History of heart valve replacement: Aortic, mechanical valve, secondary to aneurysm Status: Chronic (6) Chronic anticoagulation: Warfarin, therapeutic INR at admission, goal INR 2.5-3.5, aortic valve replacement Status: Chronic (7) Prostatic hypertrophy: Had previously been on Flomax and transiently required a Lopez catheter. Denies recent nocturia and reports only occasional slow stream and difficulty initiating stream. Status: Chronic Plan Syncope and collapse Normal LV size with borderline low ejection fraction of 51%. ?Wall motion normalities as mentioned above. ?Moderately severe eccentric mitral regurgitation with mild ?prolapse of the anterior mitral leaflet. ?Composite graft of the aortic root with prosthetic valve-could ?not be well visualized ?Peak velocity of the aortic valve was 1.08 m/s ?Mild pulmonary valve regurgitation. ?Mildly increased left atrial size. ?There is no pericardial effusion. ?No previous study is available for comparison. ?Technically somewhat limited study -Secondary to sinus bradycardia, A. fib with slow ventricular response, secondary to AV block, sinus pause -All indicators of this sick sinus syndrome -Will likely require pacemaker placement as he continues to have sinus pauses and symptoms -He does not want to go home, due to his syncopal episodes, he wants to stay as inpatient -However we do not have cardiology services over the weekend he wants to stay in the hospital until Sunday for pacemaker placement -Plan is to keep him as inpatient, and await pacemaker placement on Sunday -Atropine as needed for sinus bradycardia -Currently no need for urgent pacing -Continue to monitor -INR 1.98, start therapeutic Lovenox -Cardiology on consult -DNR/DNI Attestations Medical Necessity Statement*: Patient requires hospitalization for pacemaker placement Coding Level of Care Code Acute Supervisor Inspection Room for Tammy Waterman Diagnoses Syncope and collapse R55 Atrial fibrillation with slow ventricular response I48.91 Elevated TSH R79.89 Abnormal CXR R93.89 History of heart valve replacement Z95.2 Chronic anticoagulation Z79.01 Prostatic hypertrophy N40.0
[2022-02-19] VITALS (25 sets, daily range): BP systolic 103–164; BP diastolic 46–107; PULSE 49–94; RESP 15–25; TEMP 36.3–36.6; O2SAT 95–99
[2022-02-19] MEDS: bisacodyl 5 mg Tablet 10 MG PO (01:43)
[2022-02-19 05:40] LABS: Basophils % 0.3 %; Eosinophils # 0.4 10^3/uL (0.0-0.8); Eosinophils % 6.4 %; Hematocrit 41.5 % (42.0-52.0); Hemoglobin 13.7 g/dL (11.7-16.6); Lymphocytes # 1.6 10^3/uL (0.8-4.8); Lymphocytes % 27.8 %; Mean Corpuscular Hemoglobin 29.3 pg (28.0-34.0); Mean Corpuscular Volume 88.9 fl (80-94); Mean Platelet Volume 11.9 fL (7.4-10.4); Monocytes # 0.5 10^3/uL (0.2-0.9); Monocytes % 8.5 %; Neutrophils # 3.26 10^3/uL (1.8-7.7); Neutrophils % 56.8 %; Nucleated Red Blood Cells % 0 %; Platelet Count 146 10^3/cmm (130-400); Red Blood Count 4.67 10^6/uL (4.1-5.3); Red Cell Distribution Width 14.6 % (12.1-15.1); White Blood Count 5.8 10^3/uL (4.0-10.0)
[2022-02-19 06:05] LABS: Alanine Aminotransferase 13 U/L (0-41); Albumin Level 3.7 g/dL (3.5-5.2); Alkaline Phosphatase 62 IU/L (40-130); Anion Gap 12.1 (5-19); Aspartate Amino Transferase 17 U/L (0-40); Blood Urea Nitrogen 18 mg/dL (8-23); Calcium 9.9 mg/dL (8.5-10.5); Carbon Dioxide 26 mmol/L (22-29); Chloride 103 mmol/L (98-107); Globulin 3.1 g/dL (1.3-4.6); Glucose 92 mg/dL (65-115); Osmolality Calculated 286 mOsm/kg (285-295); Phosphorus 3.3 mg/dL (2.5-4.5); Potassium 4.1 mmol/L (3.5-5.1); Sodium 137 mmol/L (136-145); Total Bilirubin 0.5 mg/dL (0.15-1.2); Total Protein 6.8 g/dL (6.6-8.7)
[2022-02-19 06:11] LABS: INR 1.39 (0.8-1.2)
[2022-02-19] MEDS: aspirin 81 mg Chew Tablet PO (08:38)
[2022-02-19] MEDS: atorvastatin 40 mg Tablet 20 MG PO (08:39)
[2022-02-19] MEDS: docusate sodium 100 mg Capsule PO ×2 (08:39→17:45)
--- NOTE | 2022-02-19 10:13 | PM.PN ---
Subjective Subjective: Last 24 hours: patient has had continued to be in sinus rhythm with first-degree AV block with Mobitz type I AV block intermittent 2 is to 1 AV block and junctional escape beats. Frequent PVCs noted as well. Patient has been asymptomatic. Medications: Reviewed: Yes Vitals/I&O/Wt Last Vital Signs Temp 97.7 F 02/17/22 08:00 Pulse 70 02/19/22 09:00 Resp 15 02/19/22 09:00 BP 164/77 02/19/22 09:00 Pulse Ox 98 02/19/22 09:00 02/18/22 02/19/22 02/19/22 22:59 06:59 14:59 Intake Total 675 / 1200 250 / 250 Output Total 500 / 500 850 / 1350 Balance 175 / 700 -850 / -150 250 / 250 Weight last 48 hrs Weight 160 lb 14.4 oz Weight 166 lb 3.2 oz Physical Exam Const: COMMON NORMALS: no acute distress, patient oriented x3 and alert GENERAL APPEARANCE: cooperative, comfortable, well kempt and well hydrated HENMT: COMMON NORMALS: hearing grossly normal bilaterally and external ears normal FACE & SINUS: normal facial exam EXTERNAL EAR: Yes external ears normal MOUTH: lip normal Eye: COMMON NORMALS: EOMs intact bilaterally and no scleral icterus GENERAL EYE: appearance normal, both eyes and all related structures ALIGNMENT: Yes alignment normal Neck/C-Spine: COMMON NORMALS: supple and no JVD GENERAL: Yes normal visual inspection CAROTIDS: Yes normal carotid upstroke Lymph: LYMPHATIC: no lymphadenopathy noted Chest: COMMONS NORMALS: normal inspection of the chest and normal palpation of entire chest wall CHEST: Yes Symmetrical chest wall rise and No tenderness Resp: COMMON NORMALS: clear to auscultation bilaterally EFFORT & INSPECTION: Yes able to speak in complete sentences and No respiratory distress AUSCULTATION: clear to auscultation bilaterally, no crackles, no rales, no rhonchi and no wheezes Cardio: COMMON NORMALS: no JVD, S1 normal heart sound present, S2 normal heart sound present and Peripheral pulses 2+ throughout PALPATION: normal PMI RHYTHM: abnormal rhythm other (irregular) HEART SOUNDS: S1 normal heart sound present, S2 normal heart sound present, no click, no gallops and no murmurs BRUITS: no carotid bruits PERIPHERAL PULSES: Peripheral pulses 2+ throughout, radial pulses present, posterior tibial pulses present and dorsalis pedis present GI: COMMON NORMALS: Soft to palpation AUSCULTATION: Yes normoactive bowel sounds PALPATION: Yes Soft to palpation, No Tenderness to palpation present (GI), No Guarding due to palpation present (GI) and No Rigid due to palpation PERCUSSION: tympanic to percussion Extremity: GENERAL: No cyanosis, Yes edema and No pallor Neuro: COMMON NORMALS: patient oriented x3 and no focal motor deficits SENSORIUM/ORIENTATION: Yes alert Psych: COMMON NORMALS: Normal thought process present and speech normal APPEARANCE: Yes well kempt SPEECH: Yes normal speech MOOD & AFFECT: Yes euthymic mood THOUGHT PROCESS: Normal thought process present THOUGHT CONTENT: Yes Normal thought content present Data : 02/19/22 04:50 02/19/22 04:50 Other data: Records were obtained from 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 After cardioversion patient had converted to sinus rhythm with Mobitz type I second-degree AV block and seems like he did wear a monitor for 2 weeks. I do not have the results available of that. Patient follows up with Dr. Moody at [facility]. Transesophageal echocardiogram 14 August 2019: Normal left atrial size and systolic function with left ventricular ejection fraction estimated at 50 to 55%. Normal right ventricle size and systolic function. Moderately dilated left atrium. Mildly dilated right atrium. Mechanical prosthetic aortic valve with peak velocity of 2 m/s with a calculated peak gradient of 16 mmHg and mean gradient of 7 mmHg. Moderate to severe mitral valve regurgitation with a wall impinging jet. Mild tricuspid valve regurgitation and moderate pulmonary hypertension. A&P Assessment and plan (1) Syncope and collapse: Most likely the patient's syncope was related to bradycardia possibly from sinus elver dysfunction. He seems to have intermittent second-degree type I AV block/2:1 AV block and junctional escape beats. -No bed at [facility] -He would like to proceed with PPM placement with Dr. Arce on Sunday. -continue to hold warfarin -will need to be bridged once INR <2.5 . Status: Acute (2) Symptomatic bradycardia: Patient seems to have intermittent high degree AV block, sinus pauses/features of sinus elver dysfunction. -No reversible cause of bradycardia Status: Acute (3) S/P ascending aortic aneurysm repair: Patient patient have a composite graft at the aortic root at the prosthetic valve. He is on long-term oral anticoagulation. 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 Status: Acute (5) History of cardiac arrhythmia: Patient has history of atrial flutter requiring DEEDEE cardioversion in 2019 Status: Acute Plan Patient had one episode of bradycardia and sinus pauses of more than 3 seconds on the telemetry, since hospital admission. There is no reversible causes for the bradyarrhythmia. In view of his clinical presentation and objective findings, for further management of his condition, he requires a permanent pacemaker plantation. He may be closely monitored on telemetry at this point. Thank you for the opportunity to evaluate this patient and make these recommendations. Attestations Medical Necessity Statement*: Needs hospital stay for PPM placement Coding Level of Care Code Acute School Teacher for Tammy Waterman Diagnoses Syncope and collapse R55 Symptomatic bradycardia R00.1 S/P ascending aortic aneurysm repair Z98.890; Z86.79 History of CVA (cerebrovascular accident) Z86.73 History of cardiac arrhythmia Z86.79
[2022-02-19 10:56] LABS: Platelet Count 124 10^3/cmm (130-400)
[2022-02-19] MEDS: heparin 5,000 unit/mL INJ 1 mL IV (10:57)
[2022-02-19] MEDS: heparin drip 25,000 UNIT/500 ML PREMIX 29.19 UNIT IV (11:03)
[2022-02-19] MEDS: acetaminophen 325 mg Tablet 650 MG PO (12:57)
--- NOTE | 2022-02-19 13:08 | PC.NURSE ---
up in chair family at bedside at this time ... c/o of discomfort in left shoulder medication given
--- NOTE | 2022-02-19 15:03 | PM.PN ---
Subjective Subjective: Patient was seen this morning, family at bedside, he asked me when will he have his pacemaker done, he is tired of waiting Vitals/I&O/Wt Last Vital Signs Temp 98 F 02/19/22 10:00 Pulse 70 02/19/22 14:00 Resp 25 H 02/19/22 14:00 BP 103/46 02/19/22 14:00 Pulse Ox 98 02/19/22 09:00 02/19/22 02/19/22 02/19/22 06:59 14:59 22:59 Intake Total 550 / 550 Output Total 850 / 1350 350 / 350 Balance -850 / -150 200 / 200 Weight last 48 hrs Weight 72.983 kg Weight 75.387 kg Physical Exam Const: COMMON NORMALS: no acute distress and patient oriented x3 Resp: COMMON NORMALS: normal respiratory effort, No retractions, No use of accessory muscles and clear to auscultation bilaterally AUSCULTATION: clear to auscultation bilaterally Cardio: COMMON NORMALS: regular rhythm, S1 normal heart sound present and S2 normal heart sound present RATE: bradycardic RHYTHM: regular rhythm HEART SOUNDS: S1 normal heart sound present and S2 normal heart sound present GI: COMMON NORMALS: Normal to inspection, nondistended, normoactive bowel sounds present, Soft to palpation and non-tender PALPATION: Yes Soft to palpation Extremity: COMMON NORMALS: no pedal edema Neuro: COMMON NORMALS: patient oriented x3 Psych: COMMON NORMALS: mental status grossly normal Data : 02/19/22 10:50 02/19/22 04:50 A&P Assessment and plan (1) Syncope and collapse: Status: Acute (2) Symptomatic bradycardia: Status: Acute (3) S/P ascending aortic aneurysm repair: Patient patient have a composite graft at the aortic root at the prosthetic valve. He is on long-term oral anticoagulation. 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 Status: Acute (5) History of cardiac arrhythmia: Patient has history of atrial flutter requiring DEEDEE cardioversion in 2019 Status: Acute Plan Syncope and collapse Normal LV size with borderline low ejection fraction of 51%. ?Wall motion normalities as mentioned above. ?Moderately severe eccentric mitral regurgitation with mild ?prolapse of the anterior mitral leaflet. ?Composite graft of the aortic root with prosthetic valve-could ?not be well visualized ?Peak velocity of the aortic valve was 1.08 m/s ?Mild pulmonary valve regurgitation. ?Mildly increased left atrial size. ?There is no pericardial effusion. ?No previous study is available for comparison. ?Technically somewhat limited study -Secondary to sinus bradycardia, A. fib with slow ventricular response, secondary to AV block, sinus pause -All indicators of this sick sinus syndrome -Will likely require pacemaker placement as he continues to have sinus pauses and symptoms -He does not want to go home, due to his syncopal episodes, he wants to stay as inpatient -However we do not have cardiology services over the weekend he wants to stay in the hospital until Sunday for pacemaker placement -Plan is to keep him as inpatient, and await pacemaker placement on Sunday -Atropine as needed for sinus bradycardia -Currently no need for urgent pacing -Continue to monitor -INR 1.39, start heparin drip -N.p.o. midnight, for pacemaker placement -Cardiology on consult -DNR/DNI Attestations Medical Necessity Statement*: Patient requires hospitalization for sinus bradycardia, proceeding with pacemaker placement Coding Level of Care Code Acute Firer Locomotive for [facility] Fwd Diagnoses Syncope and collapse R55 Symptomatic bradycardia R00.1 S/P ascending aortic aneurysm repair Z98.890; Z86.79 History of CVA (cerebrovascular accident) Z86.73 History of cardiac arrhythmia Z86.79
[2022-02-19 17:12] LABS: Partial Thromboplastin Time 101.8 SECONDS (23.9-36.7)
[2022-02-20] VITALS (26 sets, daily range): BP systolic 117–166; BP diastolic 63–97; PULSE 55–92; RESP 13–29; TEMP 36.2–37.5; O2SAT 94–99
[2022-02-20 00:15] LABS: Glucose Point of Care 91 mg/dL (70-110)
[2022-02-20 01:04] LABS: Partial Thromboplastin Time 66.5 SECONDS (23.9-36.7)
[2022-02-20] MEDS: acetaminophen 325 mg Tablet 650 MG PO ×3 (04:56→21:15)
[2022-02-20 04:57] LABS: Glucose Point of Care 92 mg/dL (70-110)
[2022-02-20 05:29] LABS: Basophils % 0.1 %; Eosinophils # 0.3 10^3/uL (0.0-0.8); Eosinophils % 4.3 %; Hematocrit 41.1 % (42.0-52.0); Hemoglobin 13.5 g/dL (11.7-16.6); Lymphocytes # 1.8 10^3/uL (0.8-4.8); Lymphocytes % 26.5 %; Mean Corpuscular HGB Conc 32.8 g/dL (30.0-36.0); Mean Corpuscular Hemoglobin 29.1 pg (28.0-34.0); Mean Corpuscular Volume 88.6 fl (80-94); Monocytes # 0.6 10^3/uL (0.2-0.9); Monocytes % 9.4 %; Neutrophils # 4.03 10^3/uL (1.8-7.7); Neutrophils % 59.4 %; Nucleated Red Blood Cells % 0 %; Platelet Count 145 10^3/cmm (130-400); Red Blood Count 4.64 10^6/uL (4.1-5.3); Red Cell Distribution Width 14.4 % (12.1-15.1); White Blood Count 6.8 10^3/uL (4.0-10.0)
[2022-02-20 05:43] LABS: INR 1.13 (0.8-1.2)
[2022-02-20 05:48] LABS: Alanine Aminotransferase 15 U/L (0-41); Albumin Level 3.7 g/dL (3.5-5.2); Alkaline Phosphatase 67 IU/L (40-130); Aspartate Amino Transferase 20 U/L (0-40); Blood Urea Nitrogen 16 mg/dL (8-23); Calcium 9.6 mg/dL (8.5-10.5); Carbon Dioxide 26 mmol/L (22-29); Chloride 105 mmol/L (98-107); Globulin 3.3 g/dL (1.3-4.6); Glucose 96 mg/dL (65-115); Magnesium 1.9 mg/dL (1.7-2.3); Osmolality Calculated 289 mOsm/kg (285-295); Phosphorus 2.8 mg/dL (2.5-4.5); Sodium 139 mmol/L (136-145); Total Bilirubin 0.6 mg/dL (0.15-1.2)
[2022-02-20 06:35] LABS: Anion Gap 12.4 (5-19); Potassium 4.4 mmol/L (3.5-5.1)
--- NOTE | 2022-02-20 08:33 | P.PN_ITS ---
Subjective Subjective: The patient is feeling okay. Denies any chest pain or shortness of breath. Telemetry shows sinus rhythm with second-degree type I and intermittent type II AV block. No new arrhythmias are noted. Medications: Medication Review Details: Current Medications Acetaminophen (Acetaminophen 325 Mg Tablet) 650 mg PO Q6H PRN PRN Reason: MILD PAIN Last Admin: 02/20/22 04:56 Dose: 650 mg Documented by: Aspirin (Aspirin 81 Mg Chew Tablet) 81 mg PO DAILY [facility] Last Admin: 02/19/22 08:38 Dose: 81 mg Documented by: Atorvastatin Calcium (Atorvastatin 40 Mg Tablet) 20 mg PO DAILY [facility] Last Admin: 02/19/22 08:39 Dose: 20 mg Documented by: Atropine Sulfate (Atropine 0.1 Mg/Ml Syr 10 Ml) 1 mg IVP ONCE PRN PRN Reason: symptomatic bradycardia Bisacodyl (Bisacodyl 5 Mg Tablet) 10 mg PO DAILY PRN PRN Reason: CONSTIPATION Docusate Sodium (Docusate Sodium 100 Mg Capsule) 100 mg PO BID [facility] Last Admin: 02/19/22 17:45 Dose: 100 mg Documented by: Heparin Sodium (Porcine) (Heparin 5,000 Unit/Ml Inj 1 Ml) 0 unit IV PRN PRN; Protocol PRN Reason: Heparin weight-base protocol Last Admin: 02/19/22 10:57 Dose: 3,600 unit Documented by: Heparin Sodium/Sodium Chloride (Heparin Drip) 25,000 unit in 500 mls @ 0 mls/hr IV .Q0M [facility]; Protocol Last Titration: 02/20/22 00:00 Dose: 0 unit/kg/hr, 0 mls/hr Documented by: Vitals/I&O/Wt Last Vital Signs Temp 98.0 F 02/20/22 06:00 Pulse 60 02/20/22 08:00 Resp 18 02/20/22 08:00 BP 126/75 02/20/22 08:00 Pulse Ox 96 02/20/22 08:00 02/19/22 02/20/22 02/20/22 22:59 06:59 14:59 Intake Total 1062.061 / 1612.061 80 / 1692.061 Output Total 950 / 1300 750 / 2050 125 / 125 Balance 112.061 / 312.061 -670 / -357.939 -125 / -125 Weight last 48 hrs Weight 160 lb 14.4 oz Weight 160 lb 14.4 oz Physical Exam Narrative: GENERAL: The patient is alert and oriented times three. Not in any acute distress. HEENT: No significant pallor, icterus or lymphadenopathy. The pupils are symmetrical. Oral cavity: There are no mucous membrane lesions. Funduscopic examination: The fundus is not visualized NECK: Trachea appears to be central. No masses noted. No JVD or thyromegaly appreciated. No carotid bruit. RESPIRATORY: Chest is symmetrical. No intercostals muscle retraction or any accessory muscle activation. There is no chest wall tenderness. Breath sounds are heard bilaterally. No rales or rhonchi heard. No evidence of any consolidation. BREASTS: Deferred. HEART: The first heart sound is variable. Second heart sound is normal. Systolic murmur grade 3 or 6 in the mitral area and in the left sternal border. No diastolic murmurs. ABDOMEN: No vessel pulsations or distention. No tenderness. No organomegaly appreciated. No abdominal bruit. Bowel sounds are normally heard. : Deferred. RECTAL: Deferred. LYMPHATIC: No lymphadenopathy noted in the neck or groin. EXTREMITIES: No edema or cyanosis. No clubbing. Peripheral pulses are palpable but somewhat weak bilaterally in the lower extremities. MUSCULOSKELETAL: No acute joint deformities or swelling SKIN: There are no significant scars or skin rash noted. NEUROPSYCHIATRIC: The patient is alert and oriented x3. Appears to be in a good mood. The higher functions are grossly within normal limits. No tremors or rigidity noted. Data : 02/20/22 04:52 02/20/22 04:52 Other Labs: Laboratory Last Values WBC 6.8 10^3/uL (4.0-10.0) 02/20/22 04:52 RBC 4.64 10^6/uL (4.1-5.3) 02/20/22 04:52 Hgb 13.5 g/dL (11.7-16.6) 02/20/22 04:52 Hct 41.1 % (42.0-52.0) L 02/20/22 04:52 MCV 88.6 fl (80-94) 02/20/22 04:52 MCH 29.1 pg (28.0-34.0) 02/20/22 04:52 MCHC 32.8 g/dL (30.0-36.0) 02/20/22 04:52 RDW 14.4 % (12.1-15.1) 02/20/22 04:52 Plt Count 145 10^3/cmm (130-400) 02/20/22 04:52 MPV 12.0 fL (7.4-10.4) H 02/20/22 04:52 Neut % (Auto) 59.4 % 02/20/22 04:52 Lymph % (Auto) 26.5 % 02/20/22 04:52 [place] % (Auto) 9.4 % 02/20/22 04:52 Eos % (Auto) 4.3 % 02/20/22 04:52 Baso % (Auto) 0.1 % 02/20/22 04:52 Neut # (Auto) 4.03 10^3/uL (1.8-7.7) 02/20/22 04:52 Lymph # (Auto) 1.8 10^3/uL (0.8-4.8) 02/20/22 04:52 [place] # (Auto) 0.6 10^3/uL (0.2-0.9) 02/20/22 04:52 Eos # (Auto) 0.3 10^3/uL (0.0-0.8) 02/20/22 04:52 Baso # (Auto) 0.0 10^3/uL (0.0-0.1) 02/20/22 04:52 Nucleated RBC % (auto) 0 % 02/20/22 04:52 Nucleated RBCs # 0.0 /100WBC 02/20/22 04:52 PT 14.90 SECONDS (12.1-14.9) 02/20/22 04:52 INR 1.13 (0.8-1.2) 02/20/22 04:52 APTT 66.5 SECONDS (23.9-36.7) H 02/20/22 00:10 Sodium 139 mmol/L (136-145) 02/20/22 04:52 Potassium 4.4 mmol/L (3.5-5.1) 02/20/22 04:52 Chloride 105 mmol/L (98-107) 02/20/22 04:52 Carbon Dioxide 26 mmol/L (22-29) 02/20/22 04:52 Anion Gap 12.4 (5-19) 02/20/22 04:52 BUN 16 mg/dL (8-23) 02/20/22 04:52 Creatinine 0.7 mg/dL (0.7-1.2) 02/20/22 04:52 GFR Calculation Not Reportable 02/20/22 04:52 Glucose 96 mg/dL (65-115) 02/20/22 04:52 POC Glucose 92 mg/dL (70-110) 02/20/22 04:52 Calculated Osmolality 289 mOsm/kg (285-295) 02/20/22 04:52 Calcium 9.6 mg/dL (8.5-10.5) 02/20/22 04:52 Phosphorus 2.8 mg/dL (2.5-4.5) 02/20/22 04:52 Magnesium 1.9 mg/dL (1.7-2.3) 02/20/22 04:52 Total Bilirubin 0.6 mg/dL (0.15-1.2) 02/20/22 04:52 AST 20 U/L (0-40) 02/20/22 04:52 ALT 15 U/L (0-41) 02/20/22 04:52 Alkaline Phosphatase 67 IU/L (40-130) 02/20/22 04:52 Troponin T Baseline 16 ng/L (0-15) H 02/15/22 21:40 Troponin T 120 Minute 12.92 ng/L (0-15) 02/16/22 00:30 Delta Troponin T -3.08 ABS# (0-10) L 02/16/22 00:30 Troponin T Hi Sens 6Hr 13.57 ng/L (0-15) 02/16/22 11:31 Troponin T Hi Sens 6Hr Delta -2.43 ng/L (0-12) L 02/16/22 11:31 NT-Pro-B Natriuret Pep 502 pg/mL (0-450) H 02/15/22 21:40 Total Protein 7.0 g/dL (6.6-8.7) 02/20/22 04:52 Albumin 3.7 g/dL (3.5-5.2) 02/20/22 04:52 Globulin 3.3 g/dL (1.3-4.6) 02/20/22 04:52 TSH 7.62 uIU/mL (0.27-4.20) H 02/15/22 21:40 Free T4 1.01 ng/dL (0.82-1.77) 02/15/22 21:40 A&P Assessment and plan (1) Syncope and collapse: Most likely the patient's syncope was related to extreme bradycardia possibly from sinus elver dysfunction. He seems to have intermittent second-degree type I AV block/junctional escape beats. Status: Acute (2) Symptomatic bradycardia: In view of the patient's symptomatic bradycardia, he requires a permanent pacemaker evaluation for further management. He would benefit from a dual-chamb er pacemaker for AV synchrony and symptom relief. Status: Acute (3) S/P ascending aortic aneurysm repair: Patient patient have a composite graft at the aortic root with a prosthetic valve. He is on long-term oral anticoagulation. 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 Status: Acute (5) History of cardiac arrhythmia: Patient seems intermittent atrial flutter/fibrillation. Status: Acute Plan In view of the patient's presenting symptoms and the objective findings, in order to further manage his condition, he requires a permanent pacer implantation. The risk of bleeding, hematoma, vascular injury, pneumothorax, infection, renal failure and other concomitant complications were explained in detail. The patient and his understood this well and consented to proceed. We will go ahead and arrange for this procedure today in the hospital. Attestations Medical Necessity Statement*: Patient requires continued hospital stay for close monitoring and further management Coding Level of Care Code Acute Teacher Of Family And Consumer Science for [facility] Fwd History Expanded Problem Focused Exam Detailed Medical Decision Making Moderate Complexity Diagnoses Syncope and collapse R55 Symptomatic bradycardia R00.1 S/P ascending aortic aneurysm repair Z98.890; Z86.79 History of CVA (cerebrovascular accident) Z86.73 History of cardiac arrhythmia Z86.79
[2022-02-20] MEDS: atorvastatin 40 mg Tablet 20 MG PO (09:07)
[2022-02-20] MEDS: docusate sodium 100 mg Capsule PO (09:07)
[2022-02-20] MEDS: aspirin 81 mg Chew Tablet PO (09:07)
--- NOTE | 2022-02-20 09:54 | PC.SOCIAL ---
IMM Updated Updated pt & on IMM. No questions voiced. Provided pt a copy. Initialed, dated, & timed copy in chart.
--- NOTE | 2022-02-20 10:35 | PC.CHAP ---
Pastoral Care Encounter/Spiritual Assessment Type of Contact [] Declined bit tripoler visit [] Patient/Family/Request visit [] Outpatient visit [] Follow-up visit [] Physician referral [] Code/Alert [x] Routine visit [] Staff referral [] Actively dying [] Patient sleeping [x] Family support [] [] Out of room [] Palliative care [] [] Receiving care in room [] Pre-surgical visit [] Trauma [] Long length of stay [x] ICU visit [x] Other: preparing for pace maker implant.. Relational/Emotional Strength [] Patient feels connected with others/family/visitors/staff [] Distress [] Loneliness/isolation [] Abandonment Spirituality of Patient [] Person of Breann [] Attends Mandaen of their Breann [] Believes in Prayer [] Reads Bible or Caodaism materials [] There are Spiritual issues to be addressed Burner Technician Interventions [x] Prayer [x] Active listening [x] Non-anxious presence [x] Spiritual/emotional support [] Crisis/trauma care [] Spiritual counseling [] Bereavement support [] Provided bereavement packet [] Provided Bible/devotional materials [] Provided toy/stuffed animal, coloring book to patient or family member [] Provided Communion [] Anointing/[place] [] Salvation [x] Completed spiritual assessment [] Other: Impact on Illness or Injury [] Angry [] Fearful [] Anxious [] Often cries [] Exhaustion [] Unable to work [] Unable to attend holiness [] Unable to walk/stand [] Unable to read [] Unable to drive [] Unable to eat/drink [] Unable to sleep [] Unable to be with family [] Patient intubated [] Other: Summary Time spent with patient
--- NOTE | 2022-02-20 12:17 | W.PM.OPSUD ---
Surgery/Procedure H&P Update DATE OF PROCEDURE: February 20, 2022 DATE H&P PERFORMED: 02/16/22 H&P UPDATE INFORMATION: I have reviewed H&P completed within last 30 days, I have examined patient prior to procedure and No changes to prior documentation PLANNED PROCEDURE: Operation Date: 02/20/22 12:00 Proposed Procedures p Pacemaker Insertion(Left) - Mila Arce MD PATIENT REASSESSED PRIOR TO SEDATION, WITH NO CHANGE NOTED: Yes PHYSICAL EXAM: alert, oriented x 3, clear to auscultation bilaterally, regular rate & rhythm and operative site marked AIRWAY EVAL/ANESTHESIA PLAN: normal airway, see other exam findings, ASA III, Monitored Anesthesia, Local Anesthesia, Risks, benefits & alternatives of sedation and/or procedure discussed and Patient agrees to continue as planned
--- NOTE | 2022-02-20 15:30 | PM.PN ---
Subjective Subjective: Patient was seen this morning, is at bedside, no lightheadedness, no dizziness, no chest pain episodes Vitals/I&O/Wt Last Vital Signs Temp 97.1 F L 02/20/22 09:00 Pulse 71 02/20/22 11:00 Resp 20 H 02/20/22 11:00 BP 132/84 02/20/22 12:00 Pulse Ox 96 02/20/22 11:00 02/20/22 02/20/22 02/20/22 06:59 14:59 22:59 Intake Total 80 / 1692.061 Output Total 750 / 2050 125 / 125 Balance -670 / -357.939 -125 / -125 Weight last 48 hrs Weight 72.983 kg Weight 72.983 kg Physical Exam Const: COMMON NORMALS: no acute distress and patient oriented x3 Resp: COMMON NORMALS: normal respiratory effort, No retractions, No use of accessory muscles and clear to auscultation bilaterally AUSCULTATION: clear to auscultation bilaterally Cardio: COMMON NORMALS: regular rate, regular rhythm, S1 normal heart sound present and S2 normal heart sound present RATE: regular rate RHYTHM: regular rhythm HEART SOUNDS: S1 normal heart sound present and S2 normal heart sound present GI: COMMON NORMALS: Normal to inspection, nondistended, normoactive bowel sounds present, Soft to palpation, non-tender and No hepatosplenomegaly present PALPATION: Yes Soft to palpation and Yes No hepatosplenomegaly present Extremity: COMMON NORMALS: no pedal edema Neuro: COMMON NORMALS: patient oriented x3 Psych: COMMON NORMALS: mental status grossly normal Data : 02/20/22 04:52 02/20/22 04:52 A&P Assessment and plan (1) Syncope and collapse: Status: Acute (2) Symptomatic bradycardia: Status: Acute (3) S/P ascending aortic aneurysm repair: Patient patient have a composite graft at the aortic root at the prosthetic valve. He is on long-term oral anticoagulation. 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 Status: Acute (5) History of cardiac arrhythmia: Patient has history of atrial flutter requiring DEEDEE cardioversion in 2019 Status: Acute Plan Syncope and collapse Normal LV size with borderline low ejection fraction of 51%. ?Wall motion normalities as mentioned above. ?Moderately severe eccentric mitral regurgitation with mild ?prolapse of the anterior mitral leaflet. ?Composite graft of the aortic root with prosthetic valve-could ?not be well visualized ?Peak velocity of the aortic valve was 1.08 m/s ?Mild pulmonary valve regurgitation. ?Mildly increased left atrial size. ?There is no pericardial effusion. ?No previous study is available for comparison. ?Technically somewhat limited study -Secondary to sinus bradycardia, A. fib with slow ventricular response, secondary to AV block, sinus pause -All indicators of this sick sinus syndrome -Will likely require pacemaker placement as he continues to have sinus pauses and symptoms -He does not want to go home, due to his syncopal episodes, he wants to stay as inpatient -However we do not have cardiology services over the weekend he wants to stay in the hospital until Sunday for pacemaker placement -Plan is to keep him as inpatient, and await pacemaker placement on Sunday -Atropine as needed for sinus bradycardia -Currently no need for urgent pacing -Continue to monitor -INR 1.13, heparin drip on hold in preparation for pacemaker placement, will likely require bridging with Lovenox and Coumadin when deemed prudent by cardiology service after pacemaker placement -N.p.o. awaiting pacemaker placement -Cardiology on consult -DNR/DNI Attestations Medical Necessity Statement*: Patient requires hospitalization, for syncope, collapse, undergoing pacemaker placement Coding Level of Care Code Acute Strip Stamp Straightener for Tammy Waterman Diagnoses Syncope and collapse R55 Symptomatic bradycardia R00.1 S/P ascending aortic aneurysm repair Z98.890; Z86.79 History of CVA (cerebrovascular accident) Z86.73 History of cardiac arrhythmia Z86.79
--- NOTE | 2022-02-20 19:14 | PC.NURSE ---
Dr. Arce told this nurse he would start anticoagulation 24 hours after procedure.
--- NOTE | 2022-02-20 21:13 | P.OP_ITS ---
Operative Report Date of procedure: February 20, 2022 Procedure: LOCATION: ICU PREOPERATIVE DIAGNOSES: Syncope/sinus elver dysfunction/second-degree AV block. POSTOPERATIVE DIAGNOSES: Same. COMPLICATIONS: None. ESTIMATED BLOOD LOSS: Around less than 5 cc BRIEF HISTORY: 86-year-old white male with a history of ascending aortic aneurysm, status post composite graft surgery, presented with an episode of syncope. He was found to have episodes of second-degree type I AV block and prolonged sinus pauses on telemetry. He did not have any reversible causes of bradycardia. For further management of his condition, a permanent pacemaker medication was recommended. A dual chamber permanent pacemaker implantation was recommended for AV synchrony and symptom relief The procedure was explained to the patient in detail with the risks and benefits. The risks of bleeding, hematoma, vascular injury, infection, pneumothorax, myocardial perforation and other concomitant complications were explained in detail, which the patient understood well and consented to proceed. PROCEDURE DESCRIPTION: The patient was brought to the Cardiac Catheterization Lab. The left and the right side of the neck and the subclavian area were cleaned and draped in a sterile fashion. 1% Xylocaine was used as the local anesthetic agent. Left subclavian venogram was performed by injecting 20 milliliters of Omnipaque through the left antecubital vein. A left subclavian venous access was obtained using a 18-gauge needle under venographic guidance. . A two-inch long incision was made 2.0 centimeters below the midclavicular region. By sharp and blunt dissection, a pacemaker pocket was made. A second venous access was obtained using an 18-gauge needle. Over the first guidewire, a 7-Moroccan venous sheath with dilator was advanced. The venous dilator and the guidewire were taken out. A screw-in ventricular lead was advanced through the venous sheath and was positioned towards the right ventricle. Under fluoroscopic guidance, the ventricular lead was positioned toward the right ventricular apex. Good pacing and sensing thresholds were obtained. The lead was secured to the endocardium by advancing the helix. The stability of the lead was tested by gentle twisting movements and also by asking the patient to take some deep breaths and cough. The venous sheath was peeled off, at this time. The lead was secured to the pectoralis fascia, by suturing with 1-0 Surgilon. Over the second guidewire, another 7-Moroccan venous sheath with dilator was advanced. The dilator and the guidewire were taken out. Under fluoroscopic guidance, an atrial lead (Medtronic), was advanced and positioned toward the right atrium. The lead was positioned in the right atrial appendage. Good pacing and sensing thresholds were obtained. The lead was secured to the endocardium by advancing the helix. Stability of the lead was tested by gentle twisting movements and also by asking the patient to take some deep breaths and cough. The venous sheath was peeled off, at this time. The lead was secured to the pectoralis fascia by suturing with 0-Surgilon. The pacemaker pocket was copiously irrigated with vancomycin solution. Complete hemostasis was achieved. Sponge counts were confirmed. The leads were attached to a Medtronic generator. The leads were positioned behind the generator and the generator was attached to the pectoralis fascia by suturing with 0-Surgilon. The pocket was closed in layers. Skin was approximated using 4-0 Vicryl. IMPLANTED DEVICES: ATRIAL LEAD: Model number: 5076/52 Serial number: [id number] Make: Medtronic VENTRICULAR LEAD: Model number: 5076/58 Serial number: [id number] Make: Medtronic GENERATOR Brand: Mcfall XT DR MRI Soren Model number: [id number] Serial number: [id number] Make: Medtronic IMPLANTATION DATA: With the pacing system analyzer, the R wave sensing was 18.2 millivolts with a lead impedance of 665 and a pacing threshold was 0.5 volts at 0.4 milliseconds. In the atrium, the sensing was 0.625 millivolts with a lead impedance of 556 ohms and a pacing threshold was 0.75 volts at 0.4 milliseconds. Through the device, the R-wave sensing was 17.3 millivolts with a lead impedance of 608 and a pacing threshold was 0.5 volts at 0.4 milliseconds. The atrial sensing was 0.5 millivolts with a lead impedance of 437 ohms and a pacing threshold of 0.75 volts at 0.4 milliseconds.(Patient was found to be in atrial flutter/tachycardia, during the study) The pacemaker was set for DDDR mode with upper rate of 130 and a lower rate of 60. A pressure dressing was applied over the pacemaker site. The patient was tr ansferred to the Medical Floor in stable condition. A chest x-ray was ordered to confirm the lead position and also to rule out any pneumothorax.
[2022-02-21] VITALS (24 sets, daily range): BP systolic 100–160; BP diastolic 59–97; PULSE 68–98; RESP 10–32; TEMP 36.6–36.7; O2SAT 94–98
[2022-02-21 03:45] LABS: Platelet Count 136 10^3/cmm (130-400)
[2022-02-21] MEDS: acetaminophen 325 mg Tablet 650 MG PO ×2 (05:13→11:16)
--- NOTE | 2022-02-21 06:00 | ECG_ITS ---
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 Measurements Intervals [place] Rate: 86 P: [place]: QRS: 64 QRSD: 88 T: -60 QT: 324 QTc: 389 Interpretive Statements Possible MAT with A-V dissociation and junctional tachycardia ST DEVIATION AND MODERATE T-WAVE ABNORMALITY, CONSIDER LATERAL ISCHEMIA [-0.1+ mV T WAVE IN I/aVL/V5/V6] Compared to ECG 02/16/2022 02:34:57 Supraventricular rhythm now present T-wave abnormality now present Possible ischemia now present Sinus bradycardia no longer present Electronically Signed On 02-21-2022 22:36:24 CDT by Mila Arce M.D. [id number]
--- NOTE | 2022-02-21 06:00 | XR_ITS ---
WS: [id number] Exam: XR chest 1V [id number] Date/Time of Exam: 02/21/2022 6:00 AM Reason For Exam: Post permanent pacemaker placement; visualize lead tip Comparison 02/15/2022. The lungs are fully inflated and clear. Heart size is normal for technique. The mediastinum is not wi dened. Again noted is a large calcified density in the AP window unchanged in appearance since prior study. Signs of median sternotomy. No pleural effusions. Bony structures are intact. Left-sided cardi ac pacemaker noted. XR/XR chest 1V [id number] IMPRESSION: 1. No acute cardiopulmonary finding. 2. Large calcified density in the AP window unchanged in appearance. 3. Cardiac pacer in place on the left which is a change since the last exam.
--- NOTE | 2022-02-21 08:02 | XR_ITS ---
WS: [id number] Exam: XR chest 1V portable [id number] Date/Time of Exam: 02/21/2022 8:07 AM Reason For Exam: ppm placement Comparison with the latest exam performed on the same day at 4:40 AM. There are now mild interstitial densities in the right lung. Left lung remains clear. Heart size is n ormal. Permanent cardiac pacer superimposes the left chest. Signs of median sternotomy. No pleural ef fusion or pneumothorax. Again noted is a large calcified density at the AP window unchanged in appear ance. XR/XR chest 1V portable [id number] IMPRESSION: 1. Development of mild interstitial infiltrates in the central and lower right lung since prior study. Developing pneumonia is not excluded.
--- NOTE | 2022-02-21 08:13 | P.PN_ITS ---
Subjective Subjective: Patient is feeling okay. Had the dual-chamber permanent pacemaker implantation yesterday. The chest x-ray revealed normal positioning of the atrial and ventricular leads. The device interrogation after the x-ray showed features suggesting possible micro dislodgment of the atrial lead Medications: Medication Review Details: Current Medications Acetaminophen (Acetaminophen 325 Mg Tablet) 650 mg PO Q6H PRN PRN Reason: MILD PAIN Last Admin: 02/21/22 05:13 Dose: 650 mg Documented by: Aspirin (Aspirin 81 Mg Chew Tablet) 81 mg PO DAILY [facility] Last Admin: 02/20/22 09:07 Dose: 81 mg Documented by: Atorvastatin Calcium (Atorvastatin 40 Mg Tablet) 20 mg PO DAILY [facility] Last Admin: 02/20/22 09:07 Dose: 20 mg Documented by: Atropine Sulfate (Atropine 0.1 Mg/Ml Syr 10 Ml) 1 mg IVP ONCE PRN PRN Reason: symptomatic bradycardia Bisacodyl (Bisacodyl 5 Mg Tablet) 10 mg PO DAILY PRN PRN Reason: CONSTIPATION Docusate Sodium (Docusate Sodium 100 Mg Capsule) 100 mg PO BID [facility] Last Admin: 02/20/22 17:57 Dose: Not Given Documented by: Heparin Sodium (Porcine) (Heparin 5,000 Unit/Ml Inj 1 Ml) 0 unit IV PRN PRN; Protocol PRN Reason: Heparin weight-base protocol Last Admin: 02/19/22 10:57 Dose: 3,600 unit Documented by: Heparin Sodium/Sodium Chloride (Heparin Drip) 25,000 unit in 500 mls @ 0 mls/hr IV .Q0M [facility]; Protocol Last Titration: 02/20/22 00:00 Dose: 0 unit/kg/hr, 0 mls/hr Documented by: Cefazolin Sodium/Dextrose (Kefzol) 2 gm in 50 mls @ 100 mls/hr IV Q8H [facility]; Protocol Stop: 02/21/22 10:59 Last Infusion: 02/21/22 03:00 Dose: Infused Documented by: Vitals/I&O/Wt Last Vital Signs Temp 99.5 F 02/20/22 20:00 Pulse 79 02/21/22 07:00 Resp 23 H 02/21/22 07:00 BP 100/63 02/21/22 07:00 Pulse Ox 96 02/21/22 07:00 02/20/22 02/21/2222 22:59 06:59 14:59 Intake Total 530 / 530 530 / 1060 Output Total 300 / 425 175 / 600 Balance 230 / 105 355 / 460 Weight last 48 hrs Weight 160 lb 14.4 oz Physical Exam Narrative: GENERAL: The patient is alert and oriented times three. Not in any acute distress. HEENT: No significant pallor, icterus or lymphadenopathy. The pupils are symmetr ical. Oral cavity: There are no mucous membrane lesions. Funduscopic examination: The fundus is not visualized NECK: Trachea appears to be central. No masses noted. No JVD or thyromegaly appreciated. No carotid bruit. RESPIRATORY: The pacemaker site has no hematoma bleeding. BREASTS: Deferred. HEART: The first heart sound is variable. Second heart sound is normal. Systolic murmur grade 3 or 6 in the mitral area and in the left sternal border. No diastolic murmurs. ABDOMEN: No vessel pulsations or distention. No tenderness. No organomegaly appreciated. No abdominal bruit. Bowel sounds are normally heard. : Deferred. RECTAL: Deferred. LYMPHATIC: No lymphadenopathy noted in the neck or groin. EXTREMITIES: No edema or cyanosis. No clubbing. Peripheral pulses are palpable but somewhat weak bilaterally in the lower extremities. MUSCULOSKELETAL: No acute joint deformities or swelling. Patient has been having left shoulder pain from a recent fall. He has limitation of movements of the left shoulder. SKIN: There are no significant scars or skin rash noted. NEUROPSYCHIATRIC: The patient is alert and oriented x3. Appears to be in a good mood. The higher functions are grossly within normal limits. No tremors or rigidity noted. Data : 02/21/22 02:40 02/20/22 04:52 Other Labs: Laboratory Last Values WBC 6.8 10^3/uL (4.0-10.0) 02/20/22 04:52 RBC 4.64 10^6/uL (4.1-5.3) 02/20/22 04:52 Hgb 13.5 g/dL (11.7-16.6) 02/20/22 04:52 Hct 41.1 % (42.0-52.0) L 02/20/22 04:52 MCV 88.6 fl (80-94) 02/20/22 04:52 MCH 29.1 pg (28.0-34.0) 02/20/22 04:52 MCHC 32.8 g/dL (30.0-36.0) 02/20/22 04:52 RDW 14.4 % (12.1-15.1) 02/20/22 04:52 Plt Count 136 10^3/cmm (130-400) 02/21/22 02:40 MPV 12.0 fL (7.4-10.4) H 02/20/22 04:52 Neut % (Auto) 59.4 % 02/20/22 04:52 Lymph % (Auto) 26.5 % 02/20/22 04:52 [place] % (Auto) 9.4 % 02/20/22 04:52 Eos % (Auto) 4.3 % 02/20/22 04:52 Baso % (Auto) 0.1 % 02/20/22 04:52 Neut # (Auto) 4.03 10^3/uL (1.8-7.7) 02/20/22 04:52 Lymph # (Auto) 1.8 10^3/uL (0.8-4.8) 02/20/22 04:52 [place] # (Auto) 0.6 10^3/uL (0.2-0.9) 02/20/22 04:52 Eos # (Auto) 0.3 10^3/uL (0.0-0.8) 02/20/22 04:52 Baso # (Auto) 0.0 10^3/uL (0.0-0.1) 02/20/22 04:52 Nucleated RBC % (auto) 0 % 02/20/22 04:52 Nucleated RBCs # 0.0 /100WBC 02/20/22 04:52 PT 14.90 SECONDS (12.1-14.9) 02/20/22 04:52 INR 1.13 (0.8-1.2) 02/20/22 04:52 APTT 66.5 SECONDS (23.9-36.7) H 02/20/22 00:10 Sodium 139 mmol/L (136-145) 02/20/22 04:52 Potassium 4.4 mmol/L (3.5-5.1) 02/20/22 04:52 Chloride 105 mmol/L (98-107) 02/20/22 04:52 Carbon Dioxide 26 mmol/L (22-29) 02/20/22 04:52 Anion Gap 12.4 (5-19) 02/20/22 04:52 BUN 16 mg/dL (8-23) 02/20/22 04:52 Creatinine 0.7 mg/dL (0.7-1.2) 02/20/22 04:52 GFR Calculation Not Reportable 02/20/22 04:52 Glucose 96 mg/dL (65-115) 02/20/22 04:52 POC Glucose 92 mg/dL (70-110) 02/20/22 04:52 Calculated Osmolality 289 mOsm/kg (285-295) 02/20/22 04:52 Calcium 9.6 mg/dL (8.5-10.5) 02/20/22 04:52 Phosphorus 2.8 mg/dL (2.5-4.5) 02/20/22 04:52 Magnesium 1.9 mg/dL (1.7-2.3) 02/20/22 04:52 Total Bilirubin 0.6 mg/dL (0.15-1.2) 02/20/22 04:52 AST 20 U/L (0-40) 02/20/22 04:52 ALT 15 U/L (0-41) 02/20/22 04:52 Alkaline Phosphatase 67 IU/L (40-130) 02/20/22 04:52 Troponin T Baseline 16 ng/L (0-15) H 02/15/22 21:40 Troponin T 120 Minute 12.92 ng/L (0-15) 02/16/22 00:30 Delta Troponin T -3.08 ABS# (0-10) L 02/16/22 00:30 Troponin T Hi Sens 6Hr 13.57 ng/L (0-15) 02/16/22 11:31 Troponin T Hi Sens 6Hr Delta -2.43 ng/L (0-12) L 02/16/22 11:31 NT-Pro-B Natriuret Pep 502 pg/mL (0-450) H 02/15/22 21:40 Total Protein 7.0 g/dL (6.6-8.7) 02/20/22 04:52 Albumin 3.7 g/dL (3.5-5.2) 02/20/22 04:52 Globulin 3.3 g/dL (1.3-4.6) 02/20/22 04:52 TSH 7.62 uIU/mL (0.27-4.20) H 02/15/22 21:40 Free T4 1.01 ng/dL (0.82-1.77) 02/15/22 21:40 Other data: The device interrogation revealed problems with atrial sensing and capturing. Good ventricular sensing and capturing. A&P Assessment and plan (1) Symptomatic bradycardia: Patient is currently in a ventricular paced rhythm. Status: Acute (2) S/P ascending aortic aneurysm repair: Patient patient have a composite graft at the aortic root with a prosthetic valve. He is on long-term oral anticoagulation. 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 We will restart anticoagulation after 24 hours Status: Acute (4) History of cardiac arrhythmia: Patient has intermittent atrial flutter/fibrillation. Status: Acute (5) Pacemaker displacement: In view of the Micro dislodgment of the atrial lead, it was decided to reposition the atrial lead. The procedure was explained to the patient and his family in detail which he understood well and consented to proceed. Status: Acute Plan We will make arrangements to have the lead repositioned this afternoon. We will keep the patient n.p.o. Attestations Medical Necessity Statement*: Patient requires continued hospital stay for close monitoring and further management Coding Level of Care Code Acute Neck Band Setter for [facility] Diagnoses Symptomatic bradycardia R00.1 S/P ascending aortic aneurysm repair Z98.890; Z86.79 History of CVA (cerebrovascular accident) Z86.73 History of cardiac arrhythmia Z86.79 Pacemaker displacement T82.128A
[2022-02-21] MEDS: docusate sodium 100 mg Capsule PO (08:21)
[2022-02-21] MEDS: aspirin 81 mg Chew Tablet PO (08:21)
[2022-02-21] MEDS: atorvastatin 40 mg Tablet 20 MG PO (08:21)
--- NOTE | 2022-02-21 16:12 | XACV_ITS ---
Exam Room: [facility] Ht: 173 cm Wt: 73 kg BSA: 1.87 m2 Gender: Male : 1935 Any Known Allergies: Other Exam Priority: Routine Procedure(s): Procedure Description: Diagnostic procedure Procedure Description: Miscellaneous Procedure Description: Dual Chamber Pacemaker Implant Diagnostic Cath Status: Elective Diagnostic Findings * Atrial lead was repositioned to the lateral wall . Good sensing and pacing thresholds were obtained. Conclusions 1. Atrial lead was repositioned. Good sensing and pacing thresholds were obtained. Further details, please refer to the separate report. Clinical Evaluation EBL: 5mL-10mL Procedural Details Procedure Consent Obtained. Admit Source: In Patient. Pre-Procedure Time Out. Identified patient by full name and date of as verbalized by the patient/guarantor. Does the consent match the physician's order: Yes. Accurate & Complete Informed Consent: Yes. Inpatient/Outpatient History & Physical on Chart: Yes. If H&P is completed, is and addenduem needed: No; If yes, is the addendum complete: N/A. Visualize and Verify Site with Patient/Guarantor: N/A. Relevant Radiology Images available: Yes. The risks, benefits, and alternatives of sedation and/or procedure were discussed by physician. The patient agrees to continue. Procedure started. Correct patient, site and procedure confirmed by cath team. Current diagnosis: Microdislodgement of the Atrial lead. PERRLA. Strong, equal hand customer service sales consultant bilaterally. Lungs clear x 5 lobes. IV Site on Arrival: 20 gauge in the right forearm. IV Site on Arrival: 20 gauge in the left anticubital. IV Fluids: 0.9% NaCl at KVO. 0 mL infused prior to labor contract analyst. Pre Procedural Pulses: bilateral radial was 3+. Pre Procedural Pulses: bilateral posterior tibial was 2+. Pre Procedural Pulses: bilateral dorsalis pedis was 2+. Oxygen started at 2liters/min via nasal canula. bilateral subclavian region was prepped with chloroprep then draped in the usual sterile fashion. Physician notified. Baseline sample Acquired. HR: 81 BPM. Physician arrived. Supplies: Cath pack, micropunture, bovie pen, 2-0 silk, 0 surgilon, 3-0 vicryl, 4-0 vicryl. Pre sponge count: 55. Pre sharps count: 20. Pre instrument count: 15. Physician scrubbed in. Time out performed with cath team. Lidocaine 1% infiltrated to Left subclavian area. Incision and pacer pocket made in left subclavian region. Generator out of pocket. A lead detached. A lead repositioned. A lead retested. A lead repositioned. A lead retested. A lead repositioned. A lead retested. A lead repositioned. A lead retested. A lead repositioned. A lead retested. A lead repositioned. A lead retested. A lead repositioned. A lead retested. Atrial lead sutured into place with surgilon. A lead retested. Antibiotic flush used to clean pacer pocket. Generator A LEAD attached and tested. Generator secured with surgilon. Subcutaneous tissue closed with 3-0 vicryl. Cutaneous tissue closed with 4-0 vicryl. All final counts correct. left subclavian pocket dressed per physician order. Shoulder immobilizer in place. Jae wrap and 4x4's in place. No bleeding or hematoma noted at left subclavian pocket. Post Procedure: Pulses reassessed and unchanged. Procedure completed. Total IV fluids: 400 mL. Total fluoro time: 14 minutes. Post-op diagnosis: Atrial Lead Revision; S/P dual chamber pacemaker insert. Estimated blood loss: 5mL-10mL. Complications: None. Physician scrubbed out. Fentanyl- 25 mcg Versed 1 mg. Vital chart was stopped. Procedure Medications Start: 4:35 PM Stop: 4:35 PM Medication: Ancef Amount: 1 g Route: I.V. Start: 4:55 PM Stop: 4:55 PM Medication: Versed 1 mg and Fentanyl 25 mcg Amount: 1 Route: I.V. Start: 4:59 PM Stop: 4:59 PM Medication: Versed 1 mg and Fentanyl 25 mcg Amount: 1 Route: I.V. Start: 5:09 PM Stop: 5:09 PM Medication: Versed Amount: 1 mg Route: I.V. Start: 5:23 PM Stop: 5:23 PM Medication: Versed Amount: 1 mg Route: I.V. Start: 5:40 PM Stop: 5:40 PM Medication: Versed Amount: 1 mg Route: I.V. Start: 5:40 PM Stop: 5:40 PM Medication: Fentanyl Amount: 25 mcg Route: I.V. Start: 5:51 PM Stop: 5:51 PM Medication: 0.9% Saline Amount: 250 ml Route: I.V. bolus I, the attending physician, have reviewed and verified all procedure medications. Yes, all medications given per verbal order History/Risk Factors Hypertension: No Dyslipidemia: No Peripheral Arterial Disease (PAD): No Myocardial Infarction (HI): No Obesity: No Renal Disease: No Tobacco Use: Former Prior Interventions PCI: No CABG: No Valve Surgery: No Report Signatures Finalized by Dr Mila Arce MD [facility] on 02/21/2022 10:24 PM
--- NOTE | 2022-02-21 16:21 | PM.PN ---
Subjective Subjective: This morning he states he is doing well. Denies pain or discomfort. States nothing he has not dealt with before. No trouble breathing. Vitals/I&O/Wt Last Vital Signs Temp 97.9 F 02/21/22 08:00 Pulse 79 02/21/22 16:00 Resp 28 H 02/21/22 16:00 BP 137/76 02/21/22 16:00 Pulse Ox 97 02/21/22 16:00 02/21/22 02/21/22 02/21/22 06:59 14:59 22:59 Intake Total 530 / 1060 250 / 250 Output Total 175 / 600 250 / 250 Balance 355 / 460 0 / 0 Weight last 48 hrs Weight 72.983 kg Physical Exam Const: COMMON NORMALS: alert GENERAL APPEARANCE: cooperative ORIENTATION/CONSCIOUSNESS: Yes awake HENMT: COMMON NORMALS: normocephalic, EAC's normal, Normal external nose present and moist oral mucous membranes HEAD & SCALP: normocephalic NOSE: Normal external nose present EXTERNAL AUDITORY CANAL: EAC's normal Neck/C-Spine: COMMON NORMALS: no meningeal signs Chest: CHEST: Yes Symmetrical chest wall rise OTHER: PPM dressing L chest Resp: COMMON NORMALS: clear to auscultation bilaterally AUSCULTATION: clear to auscultation bilaterally Cardio: COMMON NORMALS: regular rate, regular rhythm and No murmurs present (Cardio) RATE: regular rate RHYTHM: regular rhythm GI: COMMON NORMALS: Normal to inspection, nondistended, normoactive bowel sounds present, Soft to palpation and non-tender PALPATION: Yes Soft to palpation Extremity: COMMON NORMALS: no pedal edema Neuro: COMMON NORMALS: moves all extremities SENSORIUM/ORIENTATION: Yes alert MENINGEAL SIGNS: Yes no meningeal signs Psych: COMMON NORMALS: mental status grossly normal Skin: COMMON NORMALS: no wounds RASHES: no rashes Data : 02/21/22 02:40 02/20/22 04:52 A&P Assessment and plan (1) Symptomatic bradycardia: S/p PPM, placement confirmed by chest x-ray, but on interrogation with concern for microdislodgment As per discussion with cardiology plan is for lead adjustment. Status: Acute (2) Syncope and collapse: Status: Acute (3) S/P ascending aortic aneurysm repair: Patient patient have a composite graft at the aortic root at the prosthetic valve. He is on long-term oral anticoagulation. 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 Status: Acute (5) History of cardiac arrhythmia: Patient has history of atrial flutter requiring DEEDEE cardioversion in 2019 Status: Acute Plan Normal LV size with borderline low ejection fraction of 51%. ?Wall motion normalities as mentioned above. ?Moderately severe eccentric mitral regurgitation with mild ?prolapse of the anterior mitral leaflet. ?Composite graft of the aortic root with prosthetic valve-could ?not be well visualized ?Peak velocity of the aortic valve was 1.08 m/s ?Mild pulmonary valve regurgitation. ?Mildly increased left atrial size. ?There is no pericardial effusion. ?No previous study is available for comparison. ?Technically somewhat limited study Attestations Medical Necessity Statement*: Continue admission for assessment and management of symptomatic bradycardia, pacemaker lead adjustment. Coding Level of Care Code Acute Refrigeration Engine Operator for [facility] Diagnoses Syncope and collapse R55 Symptomatic bradycardia R00.1 S/P ascending aortic aneurysm repair Z98.890; Z86.79 History of CVA (cerebrovascular accident) Z86.73 History of cardiac arrhythmia Z86.79
--- NOTE | 2022-02-21 16:24 | W.PM.OPSUD ---
Surgery/Procedure H&P Update DATE OF PROCEDURE: February 21, 2022 DATE H&P PERFORMED: 02/16/22 H&P UPDATE INFORMATION: I have reviewed H&P completed within last 30 days, I have examined patient prior to procedure and No changes to prior documentation PREOP DIAGNOSIS: microdislodgement of the pacemaker lead PRIMARY INDICATION FOR PROCEDURE: As mentioned above PLANNED PROCEDURE: Operation Date: 02/20/22 12:00 Proposed Procedures Repositioning of the pacer lead PATIENT REASSESSED PRIOR TO SEDATION, WITH NO CHANGE NOTED: Yes PHYSICAL EXAM: alert, oriented x 3, clear to auscultation bilaterally and regular rate & rhythm AIRWAY EVAL/ANESTHESIA PLAN: normal airway, see other exam findings, ASA III, Monitored Anesthesia, Local Anesthesia, Risks, benefits & alternatives of sedation and/or procedure discussed and Patient agrees to continue as planned
--- NOTE | 2022-02-21 16:27 | PC.NURSE ---
microbiology lab technician Patient left ICU via bed,in care of laborer salvage staff at 1626.
--- NOTE | 2022-02-21 22:55 | P.OP_ITS ---
Operative Report Date of procedure: February 21, 2022 Pre-op diagnosis: Preop Diagnosis microdislodgement of the pacemaker lead Brief History: This is an 86-year-old white male present to the hospital with a syncopal episode. 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 For further management of his condition, he had a dual- chamber permanent pacemaker plantation on 02/20/2022. His pacemaker interrogation this morning revealed inappropriate sensing and lack of capturing in the atrial lead. Chest x-ray revealed micro dislodgment of the atrial lead. For further management, atrial lead repositioning was recommended. Procedure: Name of the procedure: Repositioning of the atrial lead Indication: Micro dislodgment of the atrial lead Estimated blood loss: None Complication: None Procedure: The patient was brought to the cardiac [employer]. The left subclavian area was cleaned and draped in a sterile fashion. 1% lidocaine was used as local anesthetic agent. Patient was given IV Versed and fentanyl for sedation. The pacemaker pocket was reentered by removing the sutures. The pacemaker generator was delivered from the pocket after removing the sutures. The atrial lead was disconnected from the generator. Under fluoroscopy guidance, the lead was positioned under the lateral wall of the atrium since the lead was found to be unstable in the appendage region of the atrium. Good sensing and capturing thresholds were obtained. The lead was reattached to generator. The leads were positioned behind generator and the generator was attached to the patella's fascia by suturing with 0 Surgilon. The pacemaker pocket was closed in layers. The skin was approximated with a 4-0 Vicryl. Implantation findings Further details of the leads and the generator, please refer to report from 02/20/2022 With a PSA, the atrial sensing was 1.6 mV. The lead impedance was 440 ohms. Pacing threshold was 0.7 V at 0.5 ms Through the device, the atrial sensing was 1.0 V. Lead impedance was 418 ohms with a capture threshold of 1.0 V at 0.4 ms The repeat ventricular lead sensing was found to be 16.1 mV with a lead impedance of 551 ohms, capture and threshold of 0.5V at 0.4 ms. A sterile dressing was applied over the incision site. Patient was transferred back to the medical floor in stable condition.
--- NOTE | 2022-02-21 23:32 | PC.NURSE ---
This second vp hr assessment of pt was done at 1999. pt was found sleeping, but awoke when name was said. pt was orient to person, place, time and situation. pt stated he was very tired and would like to go back to sleep. At 2114 this RN went to round on pt. Pt was found disoriented trying to get out of bed. His left arm was removed from velcro arm immobilizer, but still in bend position across abdomen. This RN along with 1 other repositioned pt in bed. Pt was able to be reoriented fairly quickly. Pt educated again on importance of keeping left arm still and immobilized.
[2022-02-22] VITALS (15 sets, daily range): BP systolic 98–138; BP diastolic 60–77; PULSE 60–94; RESP 12–14; TEMP 37.1–37.2; O2SAT 94–97; BMI 24.4
[2022-02-22 03:58] LABS: Basophils % 0.1 %; Eosinophils # 0.1 10^3/uL (0.0-0.8); Eosinophils % 1.5 %; Hematocrit 40.8 % (42.0-52.0); Lymphocytes % 24.4 %; Mean Corpuscular HGB Conc 34.3 g/dL (30.0-36.0); Mean Corpuscular Hemoglobin 29.7 pg (28.0-34.0); Mean Corpuscular Volume 86.4 fl (80-94); Mean Platelet Volume 11.4 fL (7.4-10.4); Monocytes # 0.9 10^3/uL (0.2-0.9); Neutrophils # 5.11 10^3/uL (1.8-7.7); Neutrophils % 62.6 %; Nucleated Red Blood Cells % 0 %; Platelet Count 116 10^3/cmm (130-400); Red Blood Count 4.72 10^6/uL (4.1-5.3); Red Cell Distribution Width 14.3 % (12.1-15.1); White Blood Count 8.2 10^3/uL (4.0-10.0)
--- NOTE | 2022-02-22 06:00 | ECG_ITS ---
[facility] Test Date: 2022-02-22 Pat Name: Remington Owens Department: Room: ICU02 Gender: Male Java Systems Analyst: : 1935 Requested By: Mila Arce Order Number: [id number] Lotus MD: Samuel Calix M.D. Measurements Intervals [place] Rate: 73 P: AR: QRS: 60 QRSD: 96 T: -57 QT: 343 QTc: 380 Interpretive Statements UNCERTAIN IRREGULAR RHYTHM ELECTRONIC VENTRICULAR PACEMAKER -- CONTOUR ANALYSIS BASED ON INTRINSIC RHYTHM ST DEVIATION AND MODERATE T-WAVE ABNORMALITY, CONSIDER INFERIOR ISCHEMIA [-0.1+ mV T WAVE IN II/aVF] Compared to ECG 02/21/2022 09:01:52 No significant changes Electronically Signed On 02-23-2022 22:34:21 CDT by Samuel Calix M.D. [email or web address]
[2022-02-22] MEDS: aspirin 81 mg Chew Tablet PO (08:09)
[2022-02-22] MEDS: docusate sodium 100 mg Capsule PO (08:10)
[2022-02-22] MEDS: atorvastatin 40 mg Tablet 20 MG PO (08:10)
--- NOTE | 2022-02-22 13:09 | PM.PN ---
Subjective Subjective: The patient is feeling okay. Denies any chest pain or shortness of breath. The pacemaker pocket has no hematoma bleeding. No fever or chills. The pacemaker function was found be appropriate. Good sensing and pacing function the leads. Medications: Medication Review Details: Current Medications Acetaminophen (Acetaminophen 325 Mg Tablet) 650 mg PO Q6H PRN PRN Reason: MILD PAIN Last Admin: 02/21/22 11:16 Dose: 650 mg Documented by: Aspirin (Aspirin 81 Mg Chew Tablet) 81 mg PO DAILY [facility] Last Admin: 02/22/22 08:09 Dose: 81 mg Documented by: Atorvastatin Calcium (Atorvastatin 40 Mg Tablet) 20 mg PO DAILY [facility] Last Admin: 02/22/22 08:10 Dose: 20 mg Documented by: Atropine Sulfate (Atropine 0.1 Mg/Ml Syr 10 Ml) 1 mg IVP ONCE PRN PRN Reason: symptomatic bradycardia Bisacodyl (Bisacodyl 5 Mg Tablet) 10 mg PO DAILY PRN PRN Reason: CONSTIPATION Docusate Sodium (Docusate Sodium 100 Mg Capsule) 100 mg PO BID [facility] Last Admin: 02/22/22 08:10 Dose: 100 mg Documented by: Heparin Sodium (Porcine) (Heparin 5,000 Unit/Ml Inj 1 Ml) 0 unit IV PRN PRN; Protocol PRN Reason: Heparin weight-base protocol Last Admin: 02/19/22 10:57 Dose: 3,600 unit Documented by: Heparin Sodium/Sodium Chloride (Heparin Drip) 25,000 unit in 500 mls @ 0 mls/hr IV .Q0M [facility]; Protocol Last Titration: 02/20/22 00:01 Dose: Infused Documented by: Cefazolin Sodium/Dextrose (Kefzol) 2 gm in 50 mls @ 100 mls/hr IV Q8H [facility]; Protocol Stop: 02/22/22 15:29 Last Admin: 02/22/22 06:07 Dose: 100 mls/hr Documented by: Vitals/I&O/Wt Last Vital Signs Temp 98.9 F 02/22/22 07:30 Pulse 87 02/22/22 12:00 Resp 12 02/22/22 04:00 BP 123/70 02/22/22 12:00 Pulse Ox 97 02/22/22 12:00 02/21/22 02/22/22 02/22/22 22:59 06:59 14:59 Intake Total 0 / 250 50 / 300 582 / 582 Output Total 200 / 450 600 / 1050 150 / 150 Balance -200 / -200 -550 / -750 432 / 432 Weight last 48 hrs Weight 160 lb 14.4 oz Physical Exam Narrative: GENERAL: The patient is alert and oriented times three. Not in any acute distress. HEENT: No significant pallor, icterus or lymphadenopathy. The pupils are symmetrical. Oral cavity: There are no mucous membrane lesions. Funduscopic examination: The fundus is not visualized NECK: Trachea appears to be central. No masses noted. No JVD or thyromegaly appreciated. No carotid bruit. RESPIRATORY: The pacemaker site has no hematoma bleeding. BREASTS: Deferred. HEART: The first heart sound is variable. Second heart sound is normal. Systolic murmur grade 3 or 6 in the mitral area and in the left sternal border. No diastolic murmurs. ABDOMEN: No vessel pulsations or distention. No tenderness. No organomegaly appreciated. No abdominal bruit. Bowel sounds are normally heard. : Deferred. RECTAL: Deferred. LYMPHATIC: No lymphadenopathy noted in the neck or groin. EXTREMITIES: No edema or cyanosis. No clubbing. Peripheral pulses are palpable but somewhat weak bilaterally in the lower extremities. MUSCULOSKELETAL: No acute joint deformities or swelling. Patient has been having left shoulder pain from a recent fall. He has limitation of movements of the left shoulder. SKIN: There are no significant scars or skin rash noted. NEUROPSYCHIATRIC: The patient is alert and oriented x3. Appears to be in a good mood. The higher functions are grossly within normal limits. No tremors or rigidity noted. Data : 02/22/22 03:27 02/20/22 04:52 Other Labs: Laboratory Last Values WBC 8.2 10^3/uL (4.0-10.0) 02/22/22 03:27 RBC 4.72 10^6/uL (4.1-5.3) 02/22/22 03:27 Hgb 14.0 g/dL (11.7-16.6) 02/22/22 03:27 Hct 40.8 % (42.0-52.0) L 02/22/22 03:27 MCV 86.4 fl (80-94) 02/22/22 03:27 MCH 29.7 pg (28.0-34.0) 02/22/22 03:27 MCHC 34.3 g/dL (30.0-36.0) 02/22/22 03: RDW 14.3 % (12.1-15.1) 02/22/22 03:27 Plt Count 116 10^3/cmm (130-400) L 02/22/22 03:27 MPV 11.4 fL (7.4-10.4) H 02/22/22 03:27 Neut % (Auto) 62.6 % 02/22/22 03:27 Lymph % (Auto) 24.4 % 02/22/22 03:27 [place] % (Auto) 11.0 % 02/22/22 03:27 Eos % (Auto) 1.5 % 02/22/22 03: Baso % (Auto) 0.1 % 02/22/22 03:27 Neut # (Auto) 5.11 10^3/uL (1.8-7.7) 02/22/22 03:27 Lymph # (Auto) 2.0 10^3/uL (0.8-4.8) 02/22/22 03:27 [place] # (Auto) 0.9 10^3/uL (0.2-0.9) 02/22/22 03:27 Eos # (Auto) 0.1 10^3/uL (0.0-0.8) 02/22/22 03:27 Baso # (Auto) 0.0 10^3/uL (0.0-0.1) 02/22/22 03:27 Nucleated RBC % (auto) 0 % 02/22/22 03:27 Nucleated RBCs # 0.0 /100WBC 02/22/22 03:27 PT 14.90 SECONDS (12.1-14.9) 02/20/22 04:52 INR 1.13 (0.8-1.2) 02/20/22 04:52 APTT 66.5 SECONDS (23.9-36.7) H 02/20/22 00:10 Sodium 139 mmol/L (136-145) 02/20/22 04:52 Potassium 4.4 mmol/L (3.5-5.1) 02/20/22 04:52 Chloride 105 mmol/L (98-107) 02/20/22 04:52 Carbon Dioxide 26 mmol/L (22-29) 02/20/22 04:52 Anion Gap 12.4 (5-19) 02/20/22 04:52 BUN 16 mg/dL (8-23) 02/20/22 04:52 Creatinine 0.7 mg/dL (0.7-1.2) 02/20/22 04:52 GFR Calculation Not Reportable 02/20/22 04:52 Glucose 96 mg/dL (65-115) 02/20/22 04:52 POC Glucose 92 mg/dL (70-110) 02/20/22 04:52 Calculated Osmolality 289 mOsm/kg (285-295) 02/20/22 04:52 Calcium 9.6 mg/dL (8.5-10.5) 02/20/22 04:52 Phosphorus 2.8 mg/dL (2.5-4.5) 02/20/22 04:52 Magnesium 1.9 mg/dL (1.7-2.3) 02/20/22 04:52 Total Bilirubin 0.6 mg/dL (0.15-1.2) 02/20/22 04:52 AST 20 U/L (0-40) 02/20/22 04:52 ALT 15 U/L (0-41) 02/20/22 04:52 Alkaline Phosphatase 67 IU/L (40-130) 02/20/22 04:52 Troponin T Baseline 16 ng/L (0-15) H 02/15/22 21:40 Troponin T 120 Minute 12.92 ng/L (0-15) 02/16/22 00:30 Delta Troponin T -3.08 ABS# (0-10) L 02/16/22 00:30 Troponin T Hi Sens 6Hr 13.57 ng/L (0-15) 02/16/22 11:31 Troponin T Hi Sens 6Hr Delta -2.43 ng/L (0-12) L 02/16/22 11:31 NT-Pro-B Natriuret Pep 502 pg/mL (0-450) H 02/15/22 21:40 Total Protein 7.0 g/dL (6.6-8.7) 02/20/22 04:52 Albumin 3.7 g/dL (3.5-5.2) 02/20/22 04:52 Globulin 3.3 g/dL (1.3-4.6) 02/20/22 04:52 TSH 7.62 uIU/mL (0.27-4.20) H 02/15/22 21:40 Free T4 1.01 ng/dL (0.82-1.77) 02/15/22 21:40 A&P Assessment and plan (1) Status post cardiac pacemaker procedure: Patient's pacemaker function is good. He is on demand AV pacing. Pacemaker pocket has no hematoma or bleeding. Status: Acute (2) S/P ascending aortic aneurysm repair: Patient patient have a composite graft at the aortic root with a prosthetic valve. He is on long-term oral anticoagulation. 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 We will restart anticoagulation after 24 hours Status: Acute (4) History of cardiac arrhythmia: Patient has intermittent atrial flutter/fibrillation. Status: Acute Plan If the patient continues remain stable, agree with the discharge home today. Patient will be going home with antibiotics for 5 days. Will be seen in the office next week for a pacemaker check and wound check. Patient was given post pacer instructions. I may see him in the clinic in 3 weeks. Attestations Medical Necessity Statement*: Possible discharge home today Coding Level of Care Code Acute Event Crew Technician for Tammy Waterman Diagnoses S/P ascending aortic aneurysm repair Z98.890; Z86.79 History of CVA (cerebrovascular accident) Z86.73 History of cardiac arrhythmia Z86.79 Status post cardiac pacemaker procedure Z95.0
--- NOTE | 2022-02-22 13:59 | PC.SOCIAL ---
IMM update IMM updated with patient. Verbalized an understanding. Copy PG 2 provided. Initialled, dated, timed, and placed in chart.
--- NOTE | 2022-02-22 14:29 | P.DS_ITS ---
Discharge Providers Date of Admission: 02/15/22 22:49 Date of Discharge: February 22, 2022 Attending Provider at Admission: Yamile Uribe MD Attending Provider at Discharge: Ignacio Romero Diagnoses at Discharge Discharge Diagnosis (1) Symptomatic bradycardia: Status: Acute (2) S/P ascending aortic aneurysm repair: Status: Acute (3) History of CVA (cerebrovascular accident): Status: Acute (4) History of cardiac arrhythmia: Status: Acute (5) Pacemaker displacement: Status: Acute Reason for Visit Reason for Visit: syncopal episode Hospital Course Hospital Course Pleasant 86-year-old gentleman who presented after syncopal episode, found to have sinus pauses, heart rates down to 20s after episode, 40s and 50s in ER. Second-degree type II AV block, intermittent A-V dissociation, junctional escape, PVCs. Recurrence of syncopal episodes. Not on elver blocking agents. He was assessed by cardiology, with history of aortic valve replacement, on chronic Coumadin, INR was monitored with holding of Coumadin, underwent pacemaker placement on 02/20. With good positioning on x-ray, but with concern for micro dislodgment of the atrial lead, underwent lead adjustment on 02/21. Doing well and eager to return home. Okay to discharge to [place] cardiology with outpatient follow-up. Received Lovenox prescription for bridging therapy. Of note also recently had a sleep study, found to have sleep apnea, but titration could not be completed, so was not yet set up with CPAP. Family wanted to try CPAP in the hospital, so was set up, did not tolerate well the first mask, but did better with the second mask choice. Encouraged to complete titration to finalize CPAP arrangements. Physical Exam Narrative: Family at bedside Const: COMMON NORMALS: alert GENERAL APPEARANCE: cooperative ORIENTATION/CONSCIOUSNESS: Yes awake OTHER: [place] HENMT: COMMON NORMALS: normocephalic, EAC's normal, Normal external nose present and moist oral mucous membranes HEAD & SCALP: normocephalic NOSE: Normal external nose present EXTERNAL AUDITORY CANAL: EAC's normal Neck/C-Spine: COMMON NORMALS: no meningeal signs Chest: CHEST: Yes Symmetrical chest wall rise OTHER: PPM dressing L chest Resp: COMMON NORMALS: clear to auscultation bilaterally AUSCULTATION: clear to auscultation bilaterally Cardio: COMMON NORMALS: regular rate, regular rhythm and No murmurs present (Cardio) RATE: regular rate RHYTHM: regular rhythm GI: COMMON NORMALS: Normal to inspection, nondistended, normoactive bowel sounds present, Soft to palpation and non-tender PALPATION: Yes Soft to palpation Extremity: COMMON NORMALS: no pedal edema Neuro: COMMON NORMALS: moves all extremities SENSORIUM/ORIENTATION: Yes alert MENINGEAL SIGNS: Yes no meningeal signs Psych: COMMON NORMALS: mental status grossly normal Skin: COMMON NORMALS: no wounds RASHES: no rashes Discharge Data Studies Completed and Pending Completed Studies During Hospitalization Category Date Time Status CT cervical spin wo con* [id number] Urgent Cat Scan 02/15/22 21:[address] head wo con* [id number] Urgent Cat Scan 02/15/22 21:00 Completed STRATEGIC CLIENT EXECUTIVE request for service Routine Exams 02/20/22 11:51 Completed STRATEGIC CLIENT EXECUTIVE request for service Routine Exams 02/21/22 16:12 Completed XR chest 1V [id number] Routine Exams 02/21/22 06:00 Completed XR chest 1V portable [id number] Stat Exams 02/21/22 08:02 Completed XR chest 1V portable [id number] Urgent Exams 02/15/22 20:38 Completed CV carotid duplex BI* [id number] Routine Ultrasound 02/16/22 08:19 Completed CV. echo complete* [id number] Routine Ultrasound 02/16/22 02:43 Completed Pending at discharge Category Date Time Status Complete Blood Count w/Auto AM LABS Lab 02/23/22 04:00 Ordered Complete Blood Count w/Auto AM LABS Lab 02/24/22 04:00 Ordered Platelet Count Q2D Lab 02/23/22 04:00 Ordered Radiology Impressions Cervical Spine CT 02/15/22 21:00 IMPRESSION: No acute spine fracture-subluxation. 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 No significant central canal stenosis related to osseous elements. Head CT 02/15/22 21:00 IMPRESSION: No acute intracranial findings. Chest X-Ray 02/21/22 08:02 IMPRESSION: 1. Development of mild interstitial infiltrates in the central and lower right lung since prior study. Developing pneumonia is not excluded. Laboratory Results WBC 8.2 10^3/uL (4.0-10.0) 02/22/22 03:27 RBC 4.72 10^6/uL (4.1-5.3) 02/22/22 03:27 Hgb 14.0 g/dL (11.7-16.6) 02/22/22 03:27 Hct 40.8 % (42.0-52.0) L 02/22/22 03: MCV 86.4 fl (80-94) 02/22/22 03: MCH 29.7 pg (28.0-34.0) 02/22/22 03: MCHC 34.3 g/dL (30.0-36.0) 02/22/22 03: RDW 14.3 % (12.1-15.1) 02/22/22 03: Plt Count 116 10^3/cmm (130-400) L 02/22/22 03: MPV 11.4 fL (7.4-10.4) H 02/22/22 03:27 Neut % (Auto) 62.6 % 02/22/22 03: Lymph % (Auto) 24.4 % 02/22/22 03:27 [place] % (Auto) 11.0 % 02/22/22 03:27 Eos % (Auto) 1.5 % 02/22/22 03:27 Baso % (Auto) 0.1 % 02/22/22 03: Neut # (Auto) 5.11 10^3/uL (1.8-7.7) 02/22/22 03: Lymph # (Auto) 2.0 10^3/uL (0.8-4.8) 02/22/22 03:27 [place] # (Auto) 0.9 10^3/uL (0.2-0.9) 02/22/22 03:27 Eos # (Auto) 0.1 10^3/uL (0.0-0.8) 02/22/22 03: Baso # (Auto) 0.0 10^3/uL (0.0-0.1) 02/22/22 03: Nucleated RBC % (auto) 0 % 02/22/22 03: Nucleated RBCs # 0.0 /100WBC 02/22/22 03: PT 14.90 SECONDS (12.1-14.9) 02/20/22 04:52 INR 1.13 (0.8-1.2) 02/20/22 04:52 APTT 66.5 SECONDS (23.9-36.7) H 02/20/22 00:10 Sodium 139 mmol/L (136-145) 02/20/22 04:52 Potassium 4.4 mmol/L (3.5-5.1) 02/20/22 04:52 Chloride 105 mmol/L (98-107) 02/20/22 04:52 Carbon Dioxide 26 mmol/L (22-29) 02/20/22 04:52 Anion Gap 12.4 (5-19) 02/20/22 04:52 BUN 16 mg/dL (8-23) 02/20/22 04:52 Creatinine 0.7 mg/dL (0.7-1.2) 02/20/22 04:52 GFR Calculation Not Reportable 02/20/22 04:52 Glucose 96 mg/dL (65-115) 02/20/22 04:52 POC Glucose 92 mg/dL (70-110) 02/20/22 04:52 Calculated Osmolality 289 mOsm/kg (285-295) 02/20/22 04:52 Calcium 9.6 mg/dL (8.5-10.5) 02/20/22 04:52 Phosphorus 2.8 mg/dL (2.5-4.5) 02/20/22 04:52 Magnesium 1.9 mg/dL (1.7-2.3) 02/20/22 04:52 Total Bilirubin 0.6 mg/dL (0.15-1.2) 02/20/22 04:52 AST 20 U/L (0-40) 02/20/22 04:52 ALT 15 U/L (0-41) 02/20/22 04:52 Alkaline Phosphatase 67 IU/L (40-130) 02/20/22 04:52 Troponin T Baseline 16 ng/L (0-15) H 02/15/22 21:40 Troponin T 120 Minute 12.92 ng/L (0-15) 02/16/22 00:30 Delta Troponin T -3.08 ABS# (0-10) L 02/16/22 00:30 Troponin T Hi Sens 6Hr 13.57 ng/L (0-15) 02/16/22 11:31 Troponin T Hi Sens 6Hr Delta -2.43 ng/L (0-12) L 02/16/22 11:31 NT-Pro-B Natriuret Pep 502 pg/mL (0-450) H 02/15/22 21:40 Total Protein 7.0 g/dL (6.6-8.7) 02/20/22 04:52 Albumin 3.7 g/dL (3.5-5.2) 02/20/22 04:52 Globulin 3.3 g/dL (1.3-4.6) 02/20/22 04:52 TSH 7.62 uIU/mL (0.27-4.20) H 02/15/22 21:40 Free T4 1.01 ng/dL (0.82-1.77) 02/15/22 21:40 Vitals Last Vital Signs Temp 98.8 F 02/22/22 13:30 Pulse 60 02/22/22 13:30 Resp 14 02/22/22 13:30 BP 108/65 02/22/22 13:30 Pulse Ox 95 02/22/22 13:30 Discharge Plan Discharge Patient Disposition: Home Condition: Stable Prescriptions: New Lovenox 60 mg/0.6 mL syringe 60 mg SUBCUT Q12H 3 Days Qty: 3.6 0RF cephalexin 500 mg capsule 500 mg PO Q6H 5 Days Qty: 20 0RF Continued multivitamin Tablet 1 tab PO DAILY 0RF tamsulosin 0.4 mg capsule 0.4 mg PO DAILY 0RF simvastatin 20 mg tablet 20 mg PO DAILY 0RF aspirin 81 mg Tablet,Chewable 81 mg PO DAILY 0RF vitamin A-vitamin C-vit E-min Tablet 1 tab PO DAILY 0RF Held warfarin 5 mg tablet 7.5 mg PO DAILY 0RF Hold Instructions: Resume on 02/23/22. Need PT/INR on next sunday at the office Discharge Orders: Discharge Order (Routine); Ordered 02/22/22 Ordered By: Mila Arce Referrals: Keith Zamora [Referring] - (march at time of 2:30 pm / ) Mila Arce MD [Physician] - 2 weeks ( appointment 04-03-22 at 2:00 pm ) Bowen Corona FNP [Nurse Practitioner] - 1 week (bowen Corona march 07, 2022 at time of 09:15 am for pace maker wound check /and pacemaker check ) Discharge Diet: Advance as tolerated and Cardiac Discharge Activity: Limit activity as instructed Patient Instructions: Cephalexin (By mouth) (Bio-Cef, Keflex), Enoxaparin (By injection), Pacemaker (DC), Opioid Safety, Post Pacemaker - Claude Activity Restrictions/Additional Instructions: limit the movements of the left shoulder to 45 degrees. No weight bearing in the left elbow. please have lab drawn ot [facility] laboratory department for date of March 01, 2022, at time of 10:00 am Take the antibiotic for 5 days Post pacemaker instructions Discharge Attestations Time Spent in Discharge Care*: greater than 30 min Quality Metrics Clinical Quality Measures [ No reported AMI, CVA or VTE this stay] Coding Level of Care Code Acute Chg FW DC note Diagnoses Symptomatic bradycardia R00.1 S/P ascending aortic aneurysm repair Z98.890; Z86.79 History of CVA (cerebrovascular accident) Z86.73 History of cardiac arrhythmia Z86.79 Pacemaker displacement T82.128A
--- NOTE | 2022-02-22 15:20 | PC.NURSE ---
Pateint discharged to home. Left with and family member in personal vehicle. Transported to vehicle via wheelchair. Extensive education provided for post pace maker placement and warfarin education. Patient and family educated on follow up appointments and wound care. Patient and family had no questions. Written education also provided. Discharge time:1517.
== END 2022-02-22 15:17 | disposition home or self-care (01) | DRG 243 ==
LOC: ER 22:49 → ICU 23:08
PROVIDERS: Family Medicine; Internal Medicine Cardiovascular Disease; Admitting Provider Hospitalist; Emergency Provider Emergency Medicine; Visit Provider Internal Medicine
PROC: 0JH606Z Insertion of Pacemaker, Dual Chamber into Chest Subcutaneous Tissue and Fascia, Open Approach (ICD-10-PCS; principal; 2022-02-20 12:00)
PROC: 02WA3MZ Revision of Cardiac Lead in Heart, Percutaneous Approach (ICD-10-PCS; principal; 2022-02-21 16:30)
DX: I44.1 Atrioventricular block, second degree (principal); T82.120A Displacement of cardiac electrode, initial encounter; Z95.2 Presence of prosthetic heart valve; N40.0 Benign prostatic hyperplasia without lower urinary tract symptoms; Z87.891 Personal history of nicotine dependence; M19.90 Unspecified osteoarthritis, unspecified site; I48.91 Unspecified atrial fibrillation; R94.6 Abnormal results of thyroid function studies; Z66 Do not resuscitate; Z79.82 Long term (current) use of aspirin; Y71.8 Miscellaneous cardiovascular devices associated with adverse incidents, not elsewhere classified; I34.0 Nonrheumatic mitral (valve) insufficiency; I27.20 Pulmonary hypertension, unspecified; Z86.73 Personal history of transient ischemic attack (TIA), and cerebral infarction without residual deficits
CPT/HCPCS: 33208; 33215; 36415; 36416; 70450; 71045; 72125; 80048; 80053; 82962; 83735; 83880; 84100; 84439; 84443; 84484; 85025; 85049; 85610; 85730; 93005; 93306; 93880; 96360; 96361; 96372; 97165; 99152; 99153; 99285; C1769; C1779; C1786; C1898; J0690; J1644; J1650; J2250; J3010; J7030; J7050; Q9967

== ENCOUNTER 2022-02-25 10:24 | Emergency (ER) | payer MEDICARE, OTHER, SELFPAY ==
[2022-02-25] VITALS (9 sets, daily range): BP systolic 110–162; BP diastolic 59–90; PULSE 63–90; RESP 13–15; TEMP 36.4; O2SAT 94–99; BMI 23.6
--- NOTE | 2022-02-25 11:04 | XRR_ITS ---
PROCEDURE INFORMATION: Exam: XR Chest Exam date and time: 02/25/2022 11:40 AM Age: 86 years old Clinical indication: Device placement; Other: Redness around pacemaker; Prior surgery; Additional info: Possible infected hardwire TECHNIQUE: Imaging protocol: Radiologic exam of the chest. Views: 1 view. COMPARISON: CR XR chest 1V portable [id number] 02/21/2022 8:15 AM FINDINGS: Tubes, catheters and devices: Two lead pacer device noted in the left chest wall. Lungs: No consolidation. Pleural spaces: No pleural effusion. No pneumothorax. Heart/Mediastinum: Calcified left suprahilar/paratracheal density is unchanged from prior studies. No cardiomegaly. Bones/joints: Intact sternotomy wires noted. Visualized osseous structures are intact. Moderate DJD of the left shoulder. XR/XR chest 1V portable [id number] IMPRESSION: No acute findings.
--- NOTE | 2022-02-25 11:11 | ED_ITS ---
HPI - General Adult General: Chief complaint: Wound/Laceration Stated complaint: Post op surg, pain, redness around site Time Seen by Provider: 02/25/22 11:00 History of Present Illness: Patient is an 86-year-old male with history of recent pacemaker placement by Dr. Arce on 02/21/2022 with revision on 02/22/2022 who presents the emergency room for concerns of fever chill and worsening redness at the pocket site after implantation yesterday night. Patient tells me that he was doing well after the surgery yesterday. However his family noticed that there is more redness around the pocket site with mild drainage. Patient also reports fever and chills at home. Patient came to the emergency room for evaluation of possible infection. Patient has been compliant with his Keflex daily. Patient denies any chest pain, shortness of breath, nausea/vomiting, diarrhea melena/menses, complaints at this time. Onset:yesterday night Duration: ongoing Location:home Severity:moderate/severe Associated symptoms: Deny chest pain, dyspnea, nausea, palpitations or vomiting Review of Systems Const: Denies: fever(s) or chills Eyes: Denies: change in vision ENMT: Denies: mouth pain Card: Denies: chest pain or palpitations Resp: Denies: dyspnea or non-productive cough GI: Denies: abdominal pain, nausea, vomiting or diarrhea : Denies: dysuria Musc: Denies: extremity pain Skin/Breast: Reports: new lesions (+erythema around the pacemaker site) Neuro: Denies: weakness in extremities Psych: Reports: other (Normal mood) John/Lymph: Denies: easy bruising [facility] PFSH: Medical History Abnormal CXR Abnormal chest x-ray dating back to the time he was in the [place]. Has had regular imaging studies in [place] previously with no change documented. 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 , 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 Reads lips to supplement hearing loss Physical Exam Const: COMMON NORMALS: alert HENMT: COMMON NORMALS: atraumatic HEAD & SCALP: atraumatic MOUTH: moist mucous membranes not abnormal Eye: COMMON NORMALS: EOMs intact bilaterally and conjunctivae normal CONJUNCTIVA: Yes conjunctivae normal Neck/C-Spine: COMMON NORMALS: full ROM and supple Resp: COMMON NORMALS: normal respiratory effort and clear to auscultation bilaterally AUSCULTATION: clear to auscultation bilaterally Cardio: COMMON NORMALS: regular rate RATE: regular rate GI: COMMON NORMALS: Soft to palpation and non-tender PALPATION: Yes Soft to palpation Extremity: COMMON NORMALS: full ROM Neuro: SENSORIUM/ORIENTATION: Yes alert MOTOR EXAM: No Abnormal motor strength present and Other motor observations present (no focal motor deficits) Psych: COMMON NORMALS: speech normal SPEECH: Yes normal speech MOOD & AFFECT: Yes euthymic mood Skin: NARRATIVE SKIN EXAM: + Erythema with mild induration around the pocket site, with warm to palpation. No palpable fluctuance, incision site intact Course Vital Signs: Vital signs: Vital Signs Temperature 97.5 F L 02/25/22 10:35 Pulse Rate 72 02/25/22 17:19 Respiratory Rate 15 02/25/22 17:19 Blood Pressure 136/77 02/25/22 17:19 Pulse Oximetry 99 02/25/22 17:19 MDM - General Adult Medical Decision Making 86-year-old male with a history of recent pacemaker implantation presenting to the emergency room for concerns of pocket infection. On physical exam, patient is afebrile. Patient is noted to have erythema with warmth around the pocket site. This is concerning for possible infection vs postoeprative changes. Our community health director Chiara notified Dr. Arce who was not complaint evaluation officer. I discussed with Dr. Calix recommend transfer for EP involvement and removal of device. We have not have cardiothoracic surgery coverage until 02/27/2022. No leukocytosis and mildly elevated CRP. Case was discussed with Dr. Zaidi who agreed with the transfer to [place] for revaluation of pocket infection and source control. Disposition: Transfer to outside hospital Lab Data : 02/25/22 11:40 02/25/22 11:40 Radiology Impressions Chest X-Ray 02/25/22 11:04 IMPRESSION: No acute findings. Laboratory Results WBC 6.3 10^3/uL (4.0-10.0) 02/25/22 11:40 RBC 4.16 10^6/uL (4.1-5.3) 02/25/22 11:40 Hgb 12.4 g/dL (11.7-16.6) 02/25/22 11:40 Hct 37.2 % (42.0-52.0) L 02/25/22 11:40 MCV 89.4 fl (80-94) 02/25/22 11:40 MCH 29.8 pg (28.0-34.0) 02/25/22 11:40 MCHC 33.3 g/dL (30.0-36.0) 02/25/22 11:40 RDW 14.2 % (12.1-15.1) 02/25/22 11:40 Plt Count 136 10^3/cmm (130-400) 02/25/22 11:40 MPV 11.5 fL (7.4-10.4) H 02/25/22 11:40 Neut % (Auto) 53.2 % 02/25/22 11:40 Lymph % (Auto) 31.6 % 02/25/22 11:40 [place] % (Auto) 9.9 % 02/25/22 11:40 Eos % (Auto) 4.8 % 02/25/22 11:40 Baso % (Auto) 0.3 % 02/25/22 11:40 Neut # (Auto) 3.35 10^3/uL (1.8-7.7) 02/25/22 11:40 Lymph # (Auto) 2.0 10^3/uL (0.8-4.8) 02/25/22 11:40 [place] # (Auto) 0.6 10^3/uL (0.2-0.9) 02/25/22 11:40 Eos # (Auto) 0.3 10^3/uL (0.0-0.8) 02/25/22 11:40 Baso # (Auto) 0.0 10^3/uL (0.0-0.1) 02/25/22 11:40 Nucleated RBC % (auto) 0 % 02/25/22 11:40 Nucleated RBCs # 0.0 /100WBC 02/25/22 11:40 Sodium 138 mmol/L (136-145) 02/25/22 11:40 Potassium 5.0 mmol/L (3.5-5.1) 02/25/22 11:40 Chloride 103 mmol/L (98-107) 02/25/22 11:40 Carbon Dioxide 28 mmol/L (22-29) 02/25/22 11:40 Anion Gap 12.0 (5-19) 02/25/22 11:40 BUN 21 mg/dL (8-23) 02/25/22 11:40 Creatinine 0.7 mg/dL (0.7-1.2) 02/25/22 11:40 GFR Calculation Not Reportable 02/25/22 11:40 Glucose 88 mg/dL (65-115) 02/25/22 11:40 Calculated Osmolality 288 mOsm/kg (285-295) 02/25/22 11:40 Calcium 10.0 mg/dL (8.5-10.5) 02/25/22 11:40 C-Reactive Protein 25.3 mg/L (0.0-4.9) H 02/25/22 11:40 Imaging Data Other Imaging: Radiologist's impression: Launch?Image [address] [address] XRay Report Signed Patient: Remington Owens Unit #: [id number] : 1935 Age/Sex: 86 / M ADM Date: 02/25/22 Loc: ER Room/Bed: Attending Dr: Ordering Provider/Ordering MD: Gennaro Bro MD Date of Service: 02/25/22 Procedure(s): XR chest 1V portable [id number] Accession Number(s): [id number] Report Number: [id number] PROCEDURE INFORMATION: Exam: XR Chest Exam date and time: 02/25/2022 11:40 AM Age: 86 years old Clinical indication: Device placement; Other: Redness around pacemaker; Prior surgery; Additional info: Possible infected hardwire TECHNIQUE: Imaging protocol: Radiologic exam of the chest. Views: 1 view. COMPARISON: CR XR chest 1V portable [id number] 02/21/2022 8:15 AM FINDINGS: Tubes, catheters and devices: Two lead pacer device noted in the left chest wall. Lungs: No consolidation. Pleural spaces: No pleural effusion. No pneumothorax. Heart/Mediastinum: Calcified left suprahilar/paratracheal density is unchanged from prior studies. No cardiomegaly. Bones/joints: Intact sternotomy wires noted. Visualized osseous structures are intact. Moderate DJD of the left shoulder. XR/XR chest 1V portable [id number] IMPRESSION: No acute findings. ? Dictated By: Devon Salazar DO Signed By: Devon Salazar DO Signed Date/Time: 02/25/22 1252 DD/ 1140 Discharge Plan Discharge Patient Disposition: Transfer to ED Clinical Impression: Infection of pacemaker pocket Condition: Stable Prescriptions: No Action warfarin 5 mg tablet 7.5 mg PO DAILY 0RF Hold Instructions: Resume on 02/23/22. Need PT/INR on next sunday at the o ffice multivitamin Tablet 1 tab PO DAILY 0RF tamsulosin 0.4 mg capsule 0.4 mg PO DAILY 0RF simvastatin 20 mg tablet 20 mg PO DAILY 0RF aspirin 81 mg Tablet,Chewable 81 mg PO DAILY 0RF vitamin A-vitamin C-vit E-min Tablet 1 tab PO DAILY 0RF Coding Level of Care Code ED Garbage Collector Supervisor for Chg Fwd Exam Comprehensive
[2022-02-25 11:50] LABS: Basophils % 0.3 %; Eosinophils # 0.3 10^3/uL (0.0-0.8); Eosinophils % 4.8 %; Hematocrit 37.2 % (42.0-52.0); Hemoglobin 12.4 g/dL (11.7-16.6); Lymphocytes % 31.6 %; Mean Corpuscular HGB Conc 33.3 g/dL (30.0-36.0); Mean Corpuscular Hemoglobin 29.8 pg (28.0-34.0); Mean Corpuscular Volume 89.4 fl (80-94); Mean Platelet Volume 11.5 fL (7.4-10.4); Monocytes # 0.6 10^3/uL (0.2-0.9); Monocytes % 9.9 %; Neutrophils # 3.35 10^3/uL (1.8-7.7); Neutrophils % 53.2 %; Nucleated Red Blood Cells % 0 %; Platelet Count 136 10^3/cmm (130-400); Red Blood Count 4.16 10^6/uL (4.1-5.3); Red Cell Distribution Width 14.2 % (12.1-15.1); White Blood Count 6.3 10^3/uL (4.0-10.0)
[2022-02-25 12:07] LABS: Blood Urea Nitrogen 21 mg/dL (8-23); C Reactive Protein 25.3 mg/L (0.0-4.9); Carbon Dioxide 28 mmol/L (22-29); Chloride 103 mmol/L (98-107); Glucose 88 mg/dL (65-115); Osmolality Calculated 288 mOsm/kg (285-295); Sodium 138 mmol/L (136-145)
[2022-02-25] MEDS: cefepime 1,000 MG in sodium chloride 0.9% (plus) 50 ML 100 MG IV (12:27)
[2022-02-25] MEDS: clindamycin 600 MG/50 ML PREMIX 100 MG IV (13:06)
[2022-02-25] MEDS: morphine 4 mg/mL SDV 1 mL IVP (13:06)
[2022-02-25] MEDS: vancomycin 1,000 MG in sodium chloride 0.9% 250 ML 250 MG IV (13:30)
== END 2022-02-25 17:21 ==
PROVIDERS: Emergency Provider Emergency Medicine
DX: T82.7XXA Infection and inflammatory reaction due to other cardiac and vascular devices, implants and grafts, initial encounter (principal); Z79.01 Long term (current) use of anticoagulants; Z79.82 Long term (current) use of aspirin; Z87.891 Personal history of nicotine dependence
CPT/HCPCS: 71045; 80048; 85025; 86140; 87040; 96367; 96374; 96375; 99284; J0692; J2270; J3370; J3490; J7050